=== PATIENT | male | born 1970 | race Caucasian/White ===

== ENCOUNTER 2020-06-04 10:17 | Outpatient (REF) | payer BC, SELFPAY ==
[2020-06-04 11:24] LABS: Alanine Aminotransferase 63 U/L (0-40); Anion Gap 11 (12-20); Blood Urea Nitrogen 13 mg/dL (9-16); Carbon Dioxide 30 mmol/L (22-29); Chloride 102 mmol/L (96-108); Cholesterol 158 mg/dL; Estimated Glomerular Filt Rate > 60; Glucose Fasting 120 mg/dL (60-99); HDL Cholesterol 62 mg/dL; LDL Cholesterol Calculated 73 mg/dl; Potassium 4.6 mmol/l (3.3-5.1); Sodium 138 mmol/L (135-145); Triglycerides 119 mg/dL
== END 2020-06-04 10:18 | disposition home or self-care (01) ==
LOC: HO.LAB 10:17
PROVIDERS: PCP Family Medicine; Visit Provider Family Medicine
DX: I10 Essential (primary) hypertension (principal); E78.00 Pure hypercholesterolemia, unspecified; Z79.899 Other long term (current) drug therapy; Z83.3 Family history of diabetes mellitus
CPT/HCPCS: 80051; 80061; 82550; 82565; 82947; 84460; 84520

== ENCOUNTER 2020-08-27 08:43 | Outpatient (REF) | payer BC, SELFPAY ==
[2020-08-27 09:39] LABS: Alanine Aminotransferase 36 U/L (0-40); Aspartate Amino Transferase 22 U/L (5-37); Glucose Fasting 106 mg/dL (60-99)
[2020-08-27 10:23] LABS: Estimated Average Glucose 111 mg/dL; Hemoglobin A1c % 5.5 %
== END 2020-08-27 08:44 | disposition home or self-care (01) ==
LOC: HO.LAB 08:43
PROVIDERS: PCP Family Medicine; Visit Provider Family Medicine
DX: R73.9 Hyperglycemia, unspecified (principal); R79.89 Other specified abnormal findings of blood chemistry
CPT/HCPCS: 36415; 82947; 83036; 84450; 84460

== ENCOUNTER 2021-05-27 10:10 | Outpatient (REF) | payer BC, SELFPAY ==
[2021-05-27 11:39] LABS: Alanine Aminotransferase 47 U/L (0-40); Anion Gap 11 (12-20); Blood Urea Nitrogen 13 mg/dL (9-16); Carbon Dioxide 31 mmol/L (22-29); Chloride 104 mmol/L (96-108); Estimated Glomerular Filt Rate > 60; Potassium 4.8 mmol/L (3.3-5.1); Sodium 141 mmol/L (135-145)
== END 2021-05-27 10:11 | disposition home or self-care (01) ==
LOC: HO.LAB 10:10
PROVIDERS: PCP Family Medicine; Visit Provider Family Medicine
DX: I10 Essential (primary) hypertension (principal); E78.00 Pure hypercholesterolemia, unspecified; Z79.899 Other long term (current) drug therapy
CPT/HCPCS: 36415; 80051; 82550; 82565; 84460; 84520

== ENCOUNTER 2021-08-29 10:10 | Outpatient (REF) | payer BC, SELFPAY ==
[2021-08-29 14:12] LABS: Appearance Urine CLEAR; Color Urine YELLOW; Glucose Urine UA NEG (NEG); Leukocyte Esterase Urine TRACE (NEG); Nitrite Urine NEG (NEG); UACC Culture Trigger YES; Urine Blood NEG (NEG); Urine Ketones NEG (NEG); Urine Protein NEG (NEG-TRACE)
[2021-08-29 15:03] LABS: Squamous Epithelial Cell Urine 1+ /LPF
[2021-08-29 15:04] LABS: RBC Urine 0 /HPF (0); WBC Urine 0-2 /HPF (0-4)
== END 2021-08-29 10:11 | disposition home or self-care (01) ==
LOC: HO.10HDL 10:10
PROVIDERS: Visit Provider Family Medicine
DX: R30.0 Dysuria (principal)
CPT/HCPCS: 81001; 87086

== ENCOUNTER 2021-11-24 14:46 | Outpatient (REF) | payer BC, SELFPAY ==
[2021-11-24 16:18] LABS: Alanine Aminotransferase 48 U/L (0-40); Anion Gap 12 (12-20); Aspartate Amino Transferase 27 U/L (5-37); Blood Urea Nitrogen 14 mg/dL (9-16); Carbon Dioxide 29 mmol/L (22-29); Chloride 103 mmol/L (96-108); Estimated Glomerular Filt Rate > 60; Potassium 3.9 mmol/L (3.3-5.1); Sodium 140 mmol/L (135-145)
== END 2021-11-24 14:47 | disposition home or self-care (01) ==
LOC: HO.LAB 14:46
PROVIDERS: PCP Family Medicine; Visit Provider Family Medicine
DX: E78.00 Pure hypercholesterolemia, unspecified (principal); I10 Essential (primary) hypertension; Z79.899 Other long term (current) drug therapy
CPT/HCPCS: 36415; 80051; 82550; 82565; 84450; 84460; 84520

== ENCOUNTER 2022-07-07 10:12 | Outpatient (REF) | payer BC, SELFPAY ==
[2022-07-07 10:20] LABS: MANUAL DIFF FLAG NO
[2022-07-07 11:05] LABS: Basophils Absolute Auto 0.1 X10*3/uL (0.0-0.2); Basophils Percent Auto 1.4 % (0-2); Eosinophils Absolute Auto 0.2 X10*3/uL (0.0-0.4); Eosinophils Percent Auto 3.1 % (0-4); Hematocrit 44.5 % (42.0-52.0); Imm Gran Abs Auto 0.04 X10*3/uL (0.00-0.03); Imm Gran Pct Auto 0.6 % (0.0-0.4); Lymphocytes Absolute Auto 1.9 X10*3/uL (1.2-4.9); Lymphocytes Percent Auto 26.8 % (20-40); Mean Corpuscular HGB Conc 33.7 g/dl (31.0-36.0); Mean Corpuscular Volume 85.9 fL (80.0-98.0); Mean Platelet Volume 9.1 fL (9.4-12.4); Monocytes Absolute Auto 0.5 X10*3/uL (0.1-1.2); Monocytes Percent Auto 7.4 % (2-11); Neutrophils Absolute Auto 4.4 x10*3/uL (2.0-8.3); Neutrophils Percent Auto 60.7 % (45-73); Platelet Count 228 X10*3/uL (160-400); Red Blood Count 5.18 X10*6/uL (4.60-5.80); Red Cell Distribution Width 13.3 % (11.0-16.0); White Blood Count 7.2 X10*3/uL (4.8-10.8)
[2022-07-07 11:33] LABS: Alanine Aminotransferase 73 U/L (0-40); Albumin Level 4.6 g/dL (3.5-5.0); Alkaline Phosphatase 63 U/L (39-117); Anion Gap 13 (12-20); Aspartate Amino Transferase 46 U/L (5-37); Bilirubin Total 0.6 mg/dL (0.0-1.0); Blood Urea Nitrogen 10 mg/dL (9-16); Calcium 9.5 mg/dL (8.4-10.2); Carbon Dioxide 29 mmol/L (22-29); Chloride 104 mmol/L (96-108); Estimated Glomerular Filt Rate > 60; Glucose Random 103 mg/dL (60-115); Potassium 4.5 mmol/L (3.3-5.1); Sodium 141 mmol/L (135-145)
== END 2022-07-07 10:13 | disposition home or self-care (01) ==
LOC: HO.LAB 10:12
PROVIDERS: PCP Family Medicine; Visit Provider Family Medicine
DX: I10 Essential (primary) hypertension (principal); E66.9 Obesity, unspecified; R00.0 Tachycardia, unspecified
CPT/HCPCS: 36415; 80053; 85025

== ENCOUNTER 2022-09-20 12:39 | Outpatient (REF) | payer BC, SELFPAY ==
--- NOTE | ~2022-09-20 | XR_ITS ---
EXAMINATION: XR BILATERAL KNEES CLINICAL INFORMATION: Reason for Exam M25.569 - Pain in unspecified knee COMPARISON: Knee radiographs 01/08/2017 TECHNIQUE: 2 views of the bilateral knees. 2 views of the left knee and 2 views of the right knee. 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 Moderate degenerative changes of the knee with loss of patellofemoral compartment joint space and tricompartmental osteophytes. No joint effusion. Soft tissues are unremarkable. LEFT KNEE: No acute fracture or dislocation. Redemonstration of a chronic posttraumatic deformity of the patella status post wire and screw fixation and again the lateral component of the fracture fragment does not appear to contain the dominant lateral fracture fragment. Advanced degenerative changes involving the patellofemoral compartment with there is complete loss of lateral patellofemoral compartment joint space. Small suprapatellar joint effusion. Soft tissues are unremarkable. 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 Moderate degenerative changes of the knee with loss of patellofemoral compartment joint space and tricompartmental osteophytes. LEFT KNEE: Redemonstration of a chronic posttraumatic deformity of the patella status post wire and screw fixation and again the lateral component of the fracture fragment does not appear to contain the dominant lateral fracture fragment. Advanced degenerative changes involving the patellofemoral compartment with there is complete loss of lateral patellofemoral compartment joint space.
--- NOTE | ~2022-09-20 | XR_ITS ---
EXAMINATION: XR BILATERAL KNEES CLINICAL INFORMATION: Reason for Exam M25.569 - Pain in unspecified knee COMPARISON: Knee radiographs 01/08/2017 TECHNIQUE: 2 views of the bilateral knees. 2 views of the left knee and 2 views of the right knee. 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 Moderate degenerative changes of the knee with loss of patellofemoral compartment joint space and tricompartmental osteophytes. No joint effusion. Soft tissues are unremarkable. LEFT KNEE: No acute fracture or dislocation. Redemonstration of a chronic posttraumatic deformity of the patella status post wire and screw fixation and again the lateral component of the fracture fragment does not appear to contain the dominant lateral fracture fragment. Advanced degenerative changes involving the patellofemoral compartment with there is complete loss of lateral patellofemoral compartment joint space. Small suprapatellar joint effusion. Soft tissues are unremarkable. 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 Moderate degenerative changes of the knee with loss of patellofemoral compartment joint space and tricompartmental osteophytes. LEFT KNEE: Redemonstration of a chronic posttraumatic deformity of the patella status post wire and screw fixation and again the lateral component of the fracture fragment does not appear to contain the dominant lateral fracture fragment. Advanced degenerative changes involving the patellofemoral compartment with there is complete loss of lateral patellofemoral compartment joint space.
--- NOTE | ~2022-09-20 | XR_ITS ---
EXAMINATION: XR BILATERAL KNEES CLINICAL INFORMATION: Reason for Exam M25.569 - Pain in unspecified knee COMPARISON: Knee radiographs 01/08/2017 TECHNIQUE: 2 views of the bilateral knees. 2 views of the left knee and 2 views of the right knee. 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 Moderate degenerative changes of the knee with loss of patellofemoral compartment joint space and tricompartmental osteophytes. No joint effusion. Soft tissues are unremarkable. LEFT KNEE: No acute fracture or dislocation. Redemonstration of a chronic posttraumatic deformity of the patella status post wire and screw fixation and again the lateral component of the fracture fragment does not appear to contain the dominant lateral fracture fragment. Advanced degenerative changes involving the patellofemoral compartment with there is complete loss of lateral patellofemoral compartment joint space. Small suprapatellar joint effusion. Soft tissues are unremarkable. 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 Moderate degenerative changes of the knee with loss of patellofemoral compartment joint space and tricompartmental osteophytes. LEFT KNEE: Redemonstration of a chronic posttraumatic deformity of the patella status post wire and screw fixation and again the lateral component of the fracture fragment does not appear to contain the dominant lateral fracture fragment. Advanced degenerative changes involving the patellofemoral compartment with there is complete loss of lateral patellofemoral compartment joint space.
== END 2022-09-20 12:40 | disposition home or self-care (01) ==
LOC: HO.HOSX 12:39
PROVIDERS: Visit Provider Physician Assistant
DX: M17.0 Bilateral primary osteoarthritis of knee (principal)
CPT/HCPCS: 20610; 73560; 73565; J1040

== ENCOUNTER → 2022-12-24 15:02 | Outpatient (BNVA) | payer BC, SELFPAY | PROVIDERS: PCP Family Medicine; Visit Provider Physician Assistant ==

== ENCOUNTER 2023-01-02 09:43 | Emergency (ER) | payer BC, SELFPAY ==
--- NOTE | ~2023-01-02 | XR_ITS ---
EXAMINATION: XR KNEE, RIGHT CLINICAL INFORMATION: Right knee pain and swelling. No known recent injury. COMPARISON: Standing AP knees and right knee radiographs 09/20/2022. TECHNIQUE: Four views of the right knee. FINDINGS: There is interval moderate to large suprapatellar effusion since prior imaging 09/20/2022. There is an old posttraumatic deformity involving the patella similar to prior imaging. No acute or healing fracture, dislocation, or destructive process. No periostitis. Again, there are tricompartment osteoarthritic changes with associated osteophytes femoral condyles and tibial plateau. XR/XR knee RT 3V IMPRESSION: - Moderate to large suprapatellar effusion new from prior imaging 09/20/2022. - Old posttraumatic deformity patella similar to prior imaging. No acute or healing fracture or dislocation. - Tricompartment osteoarthritis.
[2023-01-02 09:52] VITALS: BP 154/91; PULSE 73; RESP 18; TEMP 36.5; O2SAT 97; BMI 40.2
--- NOTE | 2023-01-02 09:57 | PC.NURSE ---
Patient with history of breaking bilateral knee caps presents with right knee pain. Patient unable to bear weight to the extremity, used crutches at home and a wheelchair in waiting room. Right knee noted to be more swollen than left knee. Patient is otherwise well appearing.
--- NOTE | 2023-01-02 10:21 | ED.LOWEXIN ---
HPI - Extremity Injury (Lower) General Chief Complaint: Extremity Injury, Lower Stated Complaint: R knee pain Time Seen by Provider: 01/02/23 09:48 Source: patient, RN notes reviewed and old records reviewed Limitations: no limitations History of Present Illness HPI Narrative: 52-year-old male with a PMHx of patellofemoral arthritis, prior bilateral patellar surgery presents to the ED c/o atraumatic right knee pain x 1 day with difficulty/inability to ambulate secondary to pain. 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 admits tried Aleve and icing knee without relief. He denies recent trauma to the area, weakness, fever MD complaint: other Onset (ago): day(s) Related Data Home Medications Medication Instructions Recorded Confirmed albuterol sulfate 90 mcg/actuation 2 puff inhalation Q4H PRN wheezing 09/20/22 aerosol inhaler metoprolol succinate 50 mg 50 mg PO DAILY 09/20/22 tablet,extended release 24 hr simvastatin 40 mg tablet 40 mg PO BEDTIME 09/20/22 Previous Rx's Medication Instructions Recorded ketorolac 10 mg tablet 10 mg PO TID PRN pain 5 days #15 01/02/23 tabs Allergies Allergy/AdvReac Type Severity Reaction Status Date / Time acetaminophen [Percocet] Allergy Unknown syncope Verified 12/24/22 15:23 oxycodone [Percocet] Allergy Unknown syncope Verified 12/24/22 15:23 Review of Systems Review of Systems: Constitutional: No Fever, No Chills ENT/Mouth: No Nasal Congestion, No Hoarseness, No sore throat, No Rhinorrhea, No Swallowing Difficulty Cardiovascular: No Chest Pain, No SOB Respiratory: No Cough, No Sputum, No Wheezing Gastrointestinal: No Nausea, No Vomiting Musculoskeletal: + Joint pain, No Myalgias, + Joint Swelling Skin: No Skin Lesions, No rash Neuro: No Weakness, No Numbness, + Paresthesias Yes all other systems are reviewed and are negative Constitutional: Constitutional: Reports as per [facility] Past Medical History Attestation statement: The following information was validated with the patient. 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 [employer] Physical Exam Vital Signs: Vital Signs: Last Vital Signs Temp 98.1 F 01/02/23 12:38 Pulse 82 01/02/23 12:38 Resp 18 01/02/23 12:38 BP 129/78 01/02/23 12:38 Pulse Ox 96 01/02/23 12:38 O2 Del Method Room Air 01/02/23 12:38 BMI result Body Mass Index 40.2 Const: General: cooperative, healthy appearing and no acute distress Orientation/consciousness: patient oriented x3 Limitations: no limitations HEENT: Head: Yes normal to inspection and Yes atraumatic Ears: hearing grossly normal bilaterally General nose exam: Normal external nose present Face and sinus: Yes normal facial exam Eyes: General: appearance normal, both eyes and all related structures EOM: EOMs intact bilaterally Neck: Neck: Yes normal visual inspection and Yes no meningeal signs Resp: Effort & Inspection: normal respiratory effort and no respiratory distress Cardio: Rate: regular rate Skin: Rashes: no rashes Wounds: no wounds Neuro: General: patient oriented x3, tone normal and no meningeal signs Gait exam (Neuro): Normal gait present Extrem: General: Yes no calf tenderness Right lower extremity: knee Details: tenderness Location: of the medial joint line and of the lateral joint line, swelling Location: of the patella, of the pre-patellar area and of the infrapatellar area and abnormal ROM Details: unable to extend lower leg actively and with range as follows (decreased); no lacerations, no ecchymosis, no crepitus and no unusual warmth; ROM limited Left lower extremity: normal to inspection and full ROM Course Course Course Narrative: XR knee RT 3V IMPRESSION: - Moderate to large suprapatellar effusion new from prior imaging 09/20/2022. - Old posttraumatic deformity patella similar to prior imaging. No acute or healing fracture or dislocation. - Tricompartment osteoarthritis. >BETITO wrap applied for comfort/compression and stability. Patient is supplied with crutches. Recommended close follow-up with PCP/Orthopedics, likely will need MRI Medications Administered Discontinued Medications Generic Name Dose Route Start Last Admin Trade Name Freq PRN Reason Stop Dose Admin Ketorolac Tromethamine 30 mg 01/02/23 10:55 01/02/23 11:10 Ketorolac Tromethamine 30 Mg/Ml Vial IM 01/02/23 10:56 30 mg ONCE ONE Administration Medical Decision Making Medical Decision Making MDM Narrative: 52-year-old male with a PMHx of patellofemoral arthritis, prior bilateral patellar surgery presents to the ED c/o atraumatic right knee pain x 1 day with difficulty/inability to ambulate secondary to pain. On exam VSS, Right knee with mild swelling, diffusely ttp use, no crepitus/deformity erythema or warmth. +decreased ROM. Concerning for tendon/ligamental injury vs. sprain, less likely DVT, septic joint/arthritis, gout. Plan: X-rays, IM Toradol Please refer to course for remaining clinical decision making, interpretation of labs/imaging results, and discussions with consultants and/or family members. Differential Diagnosis Differential Diagnoses: The differential diagnosis associated with the presentation includes As above Admission/Observation Consideration of admission/observation: Escalation of care including admission/observation considered Lab Data [facility] Lab Attestation statement: I reviewed the patient's lab results. Radiology Impression Discussion of test interpretation with radiology: I have reviewed the radiologist's reading. External Record Review External record reviewed: Inpatient record, Office record, Outpatient record, Prior outpatient labs, Prior outpatient radiology, Primary care record and Outside ED record Tests considered The following testing was considered but not selected: As above Discharge Plan Discharge Clinical Impression: Suprapatellar effusion of knee Patient Disposition: Home, Self-Care Instructions: Swollen Knee Joint (ED) Additional Instructions: Your x-ray shows a moderate to large suprapatellar effusion. Wear Betito wrap for compression/comfort. Bear weight as tolerated Ice and elevate Toradol as an anti-inflammatory/pain medication, take with food In addition you may take Tylenol Follow-up with your doctor and Orthopedics, you may need an MRI if symptoms persist If area being sick infected, swelling persists/worsens, pain is unbearable return to the ED Prescriptions: New ketorolac 10 mg tablet 10 mg PO TID PRN (Reason: pain) 5 Days Qty: 15 0RF No Action simvastatin 40 mg tablet 40 mg PO BEDTIME metoprolol succinate 50 mg tablet extended release 24 hr 50 mg PO DAILY albuterol sulfate 90 mcg/actuation HFA aerosol inhaler 2 puff inhalation Q4H PRN (Reason: wheezing) Referrals: [facility] – [place], [place] [facility] [Provider Group] Miguel Angel Guerra MD [Primary Care Provider] - Interventions: ED Discharge Assessment Last Done: 01/02/23 12:40 Discharge Date/Time: 01/02/23 12:41
[2023-01-02] MEDS: Ketorolac Tromethamine 30 MG/ML VIAL IM (11:10)
[2023-01-02 12:38] VITALS: BP 129/78; PULSE 82; RESP 18; TEMP 36.7; O2SAT 96
== END 2023-01-02 12:41 | disposition home or self-care (01) ==
PROVIDERS: Emergency Provider Emergency Medicine; PCP Family Medicine
DX: M25.561 Pain in right knee (principal); M25.461 Effusion, right knee; Z79.899 Other long term (current) drug therapy
CPT/HCPCS: 73562; 96372; 99284; J1885

== ENCOUNTER → 2023-01-10 09:51 | Outpatient (BNVA) | payer BC, SELFPAY | PROVIDERS: PCP Family Medicine; Visit Provider Physician Assistant | DX: M17.10 Unilateral primary osteoarthritis, unspecified knee (principal) | CPT/HCPCS: 20610; J1040 ==

== ENCOUNTER 2023-04-19 12:34 | Outpatient (AMB) | payer BC, SELFPAY ==
--- NOTE | 2023-04-19 12:39 | A.OFFVIS_ITS ---
Intake Intake Visit Reasons: OV-B/L OA knee, last injection 01/10/23 Intake Note: Norbert a 52 year old male who presents today for a follow up of bilateral knee OA, last injection 01/10/23. Patient reports last injection provided great relief. He also states last saturday he heard a pop in the back of his right knee. He is having trouble weight bearing and is currently using crutches. He is still interested in injections today. Allergies acetaminophen [Percocet] Allergy (Unknown, Verified 04/19/23 12:46) syncope oxycodone [Percocet] Allergy (Unknown, Verified 04/19/23 12:46) syncope Medication List - Last Reconciled 04/19/23 by Betzy Perez, ISABEL albuterol sulfate 90 mcg/actuation 2 puffs inhalation Q4H PRN ketorolac 10 mg PO TID PRN 5 days metoprolol succinate ER 50 mg PO DAILY simvastatin 40 mg PO BEDTIME HPI OV-B/L OA knee, last injection 01/10/23 HPI Details 52-year-old male who returns to the [facility] today for a follow-up of bilateral knee pain. He reports he heard a pop in the back of his right knee about 3 days ago. He states he has pain with weight bearing and is currently using crutches. He had his last injection on 01/10/23 which provided him good relief. He does not have a history of diabetes. 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 [employer] Review of Systems Const All systems reviewed & are unremarkable except as noted in HPI and below Physical Exam Const General: cooperative, healthy appearing, comfortable, no acute distress, well developed and alert Orientation/consciousness: patient oriented x3 HEENT Head: Yes normal to inspection, Yes normocephalic and Yes atraumatic Eyes General: appearance normal, both eyes and all related structures Resp Effort & Inspection: normal respiratory effort and able to speak in complete sentences Cardio Rate: regular rate Peripheral pulses: Peripheral pulses 2+ throughout GI Palpation (GI): Soft to palpation Skin Lesions: no lesions Rashes: no rashes Neuro General: patient oriented x3 Extrem Other: Bilat knee's have a bony prominence along the lateral side of the patella with significant crepitus on ROM. He has Full ROM on left knee, calf supple non tender, NVI. Right knee: Positive Chela's. He does have 15 degrees of extension lag. Office Procedures Joint Injection/Drain Joint Injection/Drain Primary Site: left knee Prep: site was prepped using aseptic technique, ethochloride spray was applied and injection warnings given Injected: 80 mg of, DepoMedrol, with 8 mL of, 1% plain lidocaine and in the joint Approach Used: anterolateral Procedure: The patient tolerated the procedure well and there was some relief with the local anesthesia Coding 08390 - Glenohumeral/Tronchanteric Bursa/Intraarticular Procedure code (CPT) selection complete Results Reviewed Results Reviewed: 04/19/23 12:52 Lidocaine HCl 2 % MPF [Xylocaine 2 % MPF] 5 ml .ROUTE .STK-MED ONE methylPREDNISolone acetate [DEPO-MedroL] 80 mg .ROUTE .STK-MED ONE Assessment & Plan Assessment & Plan (1) Patellofemoral arthritis: Code(s): M17.10 - Unilateral primary osteoarthritis, unspecified knee (2) Internal derangement of right knee: Code(s): M23.91 - Unspecified internal derangement of right knee (3) Locking of right knee: Code(s): M23.91 - Unspecified internal derangement of right knee Plan Left knee: We discussed options today which include steroid injection. They did consent to move forward with the left knee injection, which was tolerated well. I recommended rest, ice and elevation and OTC anti-inflammatories PRN for discomfort. If symptoms persist or worsens over the next 6-8 weeks, patient will contact the office, otherwise follow-up as needed. Right knee: A STAT MRI has been ordered for his right knee to further evaluate the integrity of his meniscus given his lack of ROM and inability to full weight bear on the RLE. Once the scan is complete, I will contact him with the results. If the scan is normal, we did discuss right knee steroid injection which he is content with. Orders: Orders MR knee RT wo con Today M17.10 - Unilateral primary osteoarthritis, unspecified knee, M17.11 - Unilateral primary osteoarthritis, right knee, M23.91 - Unspecified internal derangement of right knee Medications: New celecoxib (Celebrex) 200 mg PO BID 60 caps 3RF 30 days Patient Instructions: Scribed for Sandra Lopez PA-C, by Cody Santos, certified medical asst, on 04/19/2023 at 12:45 PM EST. I, Sandra oLpez PA-C, have personally reviewed and agree with the information entered by the scribe. Coding Level of Care Code Est Pt Level 3 (18305) Diagnoses Patellofemoral arthritis M17.10 Internal derangement of right knee M23.91 Locking of right knee M23.91 CPT Codes Coding - Joint 7: 93471 - Glenohumeral/Tronchanteric Bursa/Intraarticular ([id number])
== END 2023-04-19 13:18 | disposition home or self-care (01) ==
PROVIDERS: PCP Family Medicine; Visit Provider Physician Assistant
DX: M17.0 Bilateral primary osteoarthritis of knee (principal); M23.91 Unspecified internal derangement of right knee
CPT/HCPCS: 20610; 99213

== ENCOUNTER → 2023-04-19 12:34 | Outpatient (BNVA) | payer BC, SELFPAY | PROVIDERS: PCP Family Medicine; Visit Provider Physician Assistant | DX: M17.0 Bilateral primary osteoarthritis of knee (principal); M23.91 Unspecified internal derangement of right knee | CPT/HCPCS: 20610; J1040 ==

== ENCOUNTER 2023-04-19 16:49 | Outpatient (REF) | payer BC, SELFPAY ==
--- NOTE | ~2023-04-19 | MR_ITS ---
EXAMINATION: MR KNEE WITHOUT CONTRAST, RIGHT CLINICAL INFORMATION: Unilateral primary osteoarthritis, right knee. COMPARISON: 01/02/2023 TECHNIQUE: MRI of the knee without contrast was performed using routine sequences on a high-field scanner. FINDINGS: MENISCI: Medial Meniscus: A radial tear at the posterior horn extends through the majority of the meniscal cross-section, sparing a very thin band of peripheral undersurface fibers. This tear occurs 1.4 cm from the posterior root. Surrounding soft tissues are edematous. Partial extrusion of the meniscal body. Lateral Meniscus: Intact LIGAMENTS: Cruciate: Intact Collateral: Edema signal around the MCL is likely reactive to the underlying meniscal abnormality. Collateral ligaments are intact. A multilocular cyst along the lateral femoral epicondyle occurs at the origin of the popliteus tendon, likely a ganglion cyst. This measures up to 3 cm in length AP and situated deep to the fibular collateral ligament. EXTENSOR MECHANISM: Postoperative changes at the quadriceps and patellar tendons are characterized by tendon thickening and scar tissue formation. The patella is diminutive likely the result of prior partial resection. ARTICULAR CARTILAGE/BONE: Patellofemoral Compartment: The diminutive, fragmented patella has a persistent sagittal fracture line through the lateral facet without significant osseous bridging. There is cortical irregularity and full-thickness chondral fissuring at the fracture site. There is moderate nonuniform articular cartilage loss at the remaining articular surfaces of the patella with prominent marginal osteophytes. High-grade nonuniform articular cartilage loss is present at the trochlea with articular cortical remodeling, sclerosis, and marginal osteophytes. Medial Compartment: Moderate size marginal osteophytes. [id number] nonuniform chondral thinning at the medial femoral condyle and medial tibial plateau. Lateral Compartment: Hyhiqjei-is-mwdqk marginal osteophytes. Moderate nonuniform chondral thinning at the medial aspect of the lateral tibial plateau. More mild chondral thinning and surface irregularity at the lateral femoral condyle. JOINT FLUID AND BURSAE: [id number] effusion. Small Bliss's cyst. MR/MR knee RT wo con IMPRESSION: 1. High-grade radial tear at the posterior horn of the medial meniscus with partial extrusion of the meniscal body. 2. Hiemprho-dr-ozedno patellofemoral compartment osteoarthritis. Prior patellectomy with a residual sagittally oriented fracture through the lateral facet of the remaining bone. 3. Jzpb-[id number]-ddpijgcz medial and mild lateral compartment osteoarthritis. 4. Ijlsnaxh-ne-huxyn joint effusion and small Bliss's cyst.
== END 2023-04-19 16:50 | disposition home or self-care (01) ==
LOC: HO.MRI 16:49
PROVIDERS: PCP Family Medicine; Visit Provider Physician Assistant
DX: M17.11 Unilateral primary osteoarthritis, right knee (principal); M23.91 Unspecified internal derangement of right knee
CPT/HCPCS: 73721

== ENCOUNTER 2023-04-25 13:14 | Outpatient (AMB) | payer BC, SELFPAY ==
--- NOTE | 2023-04-25 13:31 | MHC.OFFVIS ---
Intake Intake Visit Reasons: OV- MRI Knee RT review Intake Note: Norbert is a 52 year old male who presents today for a Right knee MRI review. He was last seen on 04/19/23 with Sandra who gave injection in his left knee. Today if possible he would like an injection in his right knee. Allergies acetaminophen [Percocet] Allergy (Unknown, Verified 04/25/23 13:32) syncope oxycodone [Percocet] Allergy (Unknown, Verified 04/25/23 13:32) syncope Medication List - Last Reconciled 04/25/23 by Betzy Perez, ISABEL albuterol sulfate 90 mcg/actuation 2 puffs inhalation Q4H PRN celecoxib (Celebrex) 200 mg PO BID 30 days ketorolac 10 mg PO TID PRN 5 days metoprolol succinate ER 50 mg PO DAILY simvastatin 40 mg PO BEDTIME HPI OV- MRI Knee RT review HPI Details Norbert is a 52 year old man who presents for an MRI review of his right knee. He complains of pain in his knee with daily activity, worse with using stairs, prolonged walking, or squatting activities. His pain has been present for ~7 months now. He has left knee OA and had a knee injection on 04/19/23 by ELISHA Lopez. He did not receive a right knee injection at the time due to his knee being swollen. 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 [email or web address] Review of Systems Const All systems reviewed & are unremarkable except as noted in HPI and below Physical Exam Const General: no acute distress, alert and awake Orientation/consciousness: patient oriented x3 HEENT Head: Yes normocephalic and Yes atraumatic Eyes EOM: EOMs intact bilaterally Resp Effort & Inspection: normal respiratory effort and able to speak in complete sentences Cardio Jugular venous distension: no JVD Skin General skin exam: turgor normal Rashes: no rashes Neuro General: patient oriented x3 Extrem Other: Right Knee: Mild medial joint line ttp mild effusion neg steinmen's Psych Appearance: grossly normal Affect: normal affect Attitude: cooperative Office Procedures Joint Injection/Drain Joint Injection/Drain Details: Injected 1 mL of Decadron and 3 mL 1% lidocaine and 3 mL of 0.25% Marcaine. Site was prepped using aseptic technique. Patient tolerated the procedure well. Primary Site: right knee Approach Used: anterolateral Coding 29466 - Large joint Procedure code (CPT) selection complete Results Reviewed Results Reviewed: 04/25/23 13:43 BUPivacaine MPF 0.25 % [Sensorcaine-MPF 0.25% 10 ML] 10 ml .ROUTE .STK-MED ONE Lidocaine HCl 2 % MPF [Xylocaine 2 % MPF] 5 ml .ROUTE .STK-MED ONE dexAMETHasone sod phosphate [Decadron] 4 mg .ROUTE .STK-MED ONE I personally reviewed relevant radiographs & MR images - Moderate to large suprapatellar effusion new from prior imaging 09/20/2022. - Old posttraumatic deformity patella similar to prior imaging. No acute or healing fracture or dislocation. - Tricompartment osteoarthritis. 1. High-grade radial tear at the posterior horn of the medial meniscus with partial extrusion of the meniscal body. 2. Hadyohju-wu-qkbeau patellofemoral compartment osteoarthritis. Prior patellectomy with a residual sagittally oriented fracture through the lateral facet of the remaining bone. 3. Jokm-gx-gozxinqh medial and mild lateral compartment osteoarthritis. 4. Unjcoday-ax-fvhpf joint effusion and small Bliss's cyst. Assessment & Plan Assessment & Plan (1) Patellofemoral arthritis of right knee: Code(s): M17.11 - Unilateral primary osteoarthritis, right knee Plan: This is a 52 year old man with a right knee MMT in a setting of moderate PF OA. He has occasional pain with daily activity, worse prolonged ambulation, or squatting activities. He has a hx of relief from steroid injections. He has been improving in the last several months. This is a degenerative tear in the setting of OA and surgery is unlikely to be helpful. I discussed his diagnosis and treatment options. Most of his symptoms seem to be attributed to his OA as opposed to his MMT, and I do not recommend surgical intervention at this time. I injected his right knee today, which he tolerated well and recommend he remain active and work on weight management. He can follow up prn. (2) Tear of medial meniscus of right knee: Code(s): S83.241A - Other tear of medial meniscus, current injury, right knee, initial encounter Plan Scribed for Bharathi Benz MD by Michoacano Lomas, medical affairs specialist, on 04/25/23 at 1:45 PM, EST. Coding Level of Care Code Est Pt Level 4 (18539) Diagnoses Patellofemoral arthritis of right knee M17.11 Tear of medial meniscus of right knee S83.241A CPT Codes Coding - 71328 Large joint: 13596 - Large joint ([id number])
== END 2023-04-25 14:00 | disposition home or self-care (01) ==
PROVIDERS: PCP Family Medicine; Visit Provider Orthopaedic Surgery
DX: M17.11 Unilateral primary osteoarthritis, right knee (principal); S83.241A Other tear of medial meniscus, current injury, right knee, initial encounter
CPT/HCPCS: 20610; 99214

== ENCOUNTER → 2023-04-25 13:14 | Outpatient (BNVA) | payer BC, SELFPAY | PROVIDERS: PCP Family Medicine; Visit Provider Orthopaedic Surgery | DX: M17.11 Unilateral primary osteoarthritis, right knee (principal); S83.241A Other tear of medial meniscus, current injury, right knee, initial encounter | CPT/HCPCS: 20610; J1100 ==

== ENCOUNTER 2023-06-22 08:46 | Outpatient (REF) | payer BC, SELFPAY ==
[2023-06-22 09:46] LABS: Alanine Aminotransferase 58 U/L (0-40); Anion Gap 10 (12-20); Aspartate Amino Transferase 25 U/L (5-37); Blood Urea Nitrogen 7 mg/dL (9-16); Carbon Dioxide 27 mmol/L (22-29); Chloride 108 mmol/L (96-108); Estimated Glomerular Filt Rate > 60; Potassium 4.1 mmol/L (3.3-5.1); Sodium 141 mmol/L (135-145)
[2023-06-22 10:07] LABS: Prostate Specific Antigen Scr 0.41 ng/mL (<0.05-4.0)
== END 2023-06-22 08:47 | disposition home or self-care (01) ==
LOC: HO.LAB 08:46
PROVIDERS: PCP Family Medicine; Visit Provider Family Medicine
DX: Z12.5 Encounter for screening for malignant neoplasm of prostate (principal); I10 Essential (primary) hypertension; R35.1 Nocturia; E78.00 Pure hypercholesterolemia, unspecified; Z79.899 Other long term (current) drug therapy
CPT/HCPCS: 36415; 80051; 82550; 82565; 84153; 84450; 84460; 84520

== ENCOUNTER 2023-07-19 06:28 | Day surgery (SDC) | payer BC, SELFPAY ==
[2023-07-17 10:05] VITALS: BMI 43.0
--- NOTE | 2023-07-18 11:06 | P.CONAN_ITS ---
Documented by User: Luanne Ramirez NP 07/18/23 11:10 HPI - Anesthesia Eval Consult details Narrative: 52yo M for Colonoscopy PMFSH Active Problems Active Problems: All Active Problems (Updated 07/17/23 @ 10:04 by Yojana Jovel RN) Patellofemoral arthritis of right knee (Acute) Tear of medial meniscus of right knee (Acute) Locking of right knee (Acute) Internal derangement of right knee (Acute) Patellofemoral arthritis (Acute) Past Medical History Medical History (Updated 07/17/23 @ 10:04 by Yojana Jovel RN) Asthma Obstructive sleep apnea on CPAP Asthma High cholesterol Surgical History Surgical History (Updated 07/17/23 @ 10:06 by Yojana Jovel RN) Hx of knee surgery Social History Social History Alcohol intake: current Alcohol intake frequency: holidays/special occasions only Patient Tobacco Use Status: Never used Tobacco Are you DNR?: No Advance Directives: No Advance Directives Information Provided: Yes Nutrition Risks: No Nutritional Risk Current occupational status: employed 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[email or web address] Allergies Allergy/AdvReac Type Severity Reaction Status Date / Time oxycodone [Percocet] Allergy Unknown syncope Verified 04/25/23 13:32 Home Medications Medication Instructions Recorded Confirmed Last Taken Type albuterol sulfate 90 mcg/actuation 2 puff inhalation Q4H PRN wheezing 09/20/22 07/19/23 01/08/23 History aerosol inhaler metoprolol succinate 50 mg 50 mg PO DAILY 09/20/22 07/19/23 07/18/23 21:30 History tablet,extended release 24 hr simvastatin 40 mg tablet 40 mg PO BEDTIME 09/20/22 07/19/23 07/18/23 21:30 History Exam Height,Weight and Vital Signs: Height 5 ft 10 in Weight 136.078 kg Pertinent Lab Results Pertinent Lab Results: Laboratory Tests 07/07/22 06/22/23 10:17 09:00 WBC 7.2 Hgb 15.0 Hct 44.5 Plt Count 228 Sodium 141 Potassium 4.1 Chloride 108 Carbon Dioxide 27 BUN 7 L Creatinine 0.86 Assessment and Plan Assessment Anesthesia Assessment: Chart Reviewed Documented by User: Raffi Vogel MD 07/19/23 07:28 [facility] Past Medical History Medical History (Updated 07/17/23 @ 10:04 by Yojana Jovel RN) Asthma Obstructive sleep apnea on CPAP Asthma High cholesterol Family History Family history of problems with anesthesia: No Surgical History Surgical History (Updated 07/17/23 @ 10:06 by Yojana Jovel RN) Hx of knee surgery History of Problems with Anesthesia: No Social History Social History Alcohol intake: current Alcohol intake frequency: holidays/special occasions only Patient Tobacco Use Status: Never used Tobacco Are you DNR?: No Advance Directives: No Advance Directives Information Provided: Yes Nutrition Risks: No Nutritional Risk Current occupational status: employed 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[email or web address] Allergies Allergy/AdvReac Type Severity Reaction Status Date / Time oxycodone [Percocet] Allergy Unknown syncope Verified 04/25/23 13:32 Home Medications Medication Instructions Recorded Confirmed Last Taken Type albuterol sulfate 90 mcg/actuation 2 puff inhalation Q4H PRN wheezing 09/20/22 07/19/23 01/08/23 History aerosol inhaler metoprolol succinate 50 mg 50 mg PO DAILY 09/20/22 07/19/23 07/18/23 21:30 History tablet,extended release 24 hr simvastatin 40 mg tablet 40 mg PO BEDTIME 09/20/22 07/19/23 07/18/23 21:30 History Exam Airway Mallampati Class: II TM Dist: <=3cm Neck ROM: Full Loose/Missing/Broken Teeth: No Heart: ok Lungs: ok Assessment and Plan Assessment Anesthesia Assessment: Anesthesia Plan Discussed Final Anesthetic Review Family History of Problems with Anesthesia: No History of Problems with Anesthesia: No NPO: Yes ASA Class: III Final Preanesthetic Review: No Changes in Pt Med Stat, Meds/Allgs Chart Reviewed, Consent Obtained/Reviewed and Anes Risks/Benef Reviewed Patient Risk: Intermediate Procedure Risk: Low Anesthetic Plan Anesthetic Plan: MAC: and Agree w/ Assess. and Plan Disposition: Standard PACU
[2023-07-19 06:31] VITALS: BMI 42.5
[2023-07-19 06:45] VITALS: BP 126/85; PULSE 100; RESP 20; TEMP 36.6; O2SAT 96
[2023-07-19] MEDS: Lactated Ringers 1,000 ML 100 ML IVCONT (06:57)
[2023-07-19 08:30] VITALS: BP 133/76; PULSE 92; RESP 16; TEMP 36.4; O2SAT 97
--- NOTE | 2023-07-19 08:36 | PM.OP ---
Brief Operative Note Date of Service: 07/19/23 Pre-op diagnosis: Screening Post-op diagnosis: other (Polyps) Procedure: Colonoscopy to the cecum with hot snare polypectomy x 2, and bx/removal of cecal polyp Surgeon: Bam Marroquin MD Anesthesia: MAC Was an Natural Sciences Manager used for this Procedure?: No Estimated blood loss (mL): 2.0 Pathology: other (A. Polyp at 50cm B. Proximal ascending colon polyp C. Cecal polyp) Condition: stable Disposition: PACU
[2023-07-19 08:45] VITALS: BP 117/45; PULSE 81; RESP 16; TEMP 36.4; O2SAT 96
--- NOTE | 2023-07-19 09:37 | OP_ITS ---
DATE OF SERVICE: 07/19/2023 SURGEON: Bam Marroquin MD INDICATIONS: The patient presents for evaluation of colorectal cancer screening. Full consent has been obtained from him for this, including risks of bleeding and perforation. PREOPERATIVE DIAGNOSIS: Colorectal cancer screening. POSTOPERATIVE DIAGNOSIS: Colorectal cancer screening, colon polyps, diverticulosis, and internal hemorrhoids. PROCEDURE PERFORMED: Colonoscopy to the cecum with hot snare polypectomy x2, and biopsy and removal of polyp. ESTIMATED BLOOD LOSS: COMPLICATIONS: ANESTHESIA: Monitored anesthesia care. ASSISTANTS: SPECIMENS: DESCRIPTION OF PROCEDURE: The patient was placed in the left lateral decubitus position. The digital rectal exam revealed no abnormalities. The Olympus video pediatric colonoscope was entered into the rectum and advanced easily to the cecum. Once in the cecum, I did identify cecal pouch with appendiceal orifice and a normal-appearing ileocecal valve. The entire cecum was well visualized and appeared normal other than an approximately 4 mm polyp adjacent to the appendiceal orifice, which was biopsied and removed completely with a cold biopsy forceps. The scope was then slowly withdrawn assessing all mucosal surfaces carefully. Preparation was excellent. The ileocecal valve appeared normal. In the proximal ascending colon was an approximately 6 mm grossly adenomatous polyp, which was removed by hot snare polypectomy and recovered by suction. The polypectomy site appeared clean, without any sign of residual polyp nor bleeding. At 50 cm was an approximately 8 to 10 mm polyp on a short stalk which was removed by hot snare polypectomy and recovered by suction. The polypectomy site appeared clean, without any sign of residual polyp nor bleeding. I did not visualize any other polyps, colitis, nor angiodysplasia. There was a mild amount of sigmoid diverticulosis. In the rectum, scope was retroflexed visualizing internal hemorrhoids, but no other pathology. The rectal mucosa appeared normal. The scope was straightened and withdrawn from the patient. He tolerated the procedure well and was returned to the recovery area in stable condition. IMPRESSION: 1. Colon polyps. 2. Diverticulosis. 3. Internal hemorrhoids. PLAN: The results of the pathology will be checked. Assuming these are tubular adenomas, I would recommend a followup colonoscopy in 5 years. He was advised not to use any aspirin and NSAIDs for 1 week. I did review with him that I will be in touch with him to further evaluate the elevated LFTs to be sure he does not need any further evaluation such as imaging studies or a liver workup with laboratories including iron studies, viral serologies, and autoimmune markers. MD GEORGES Paredes/ANANDA / [phone]
== END 2023-07-19 09:05 | disposition home or self-care (01) ==
PROVIDERS: PCP Family Medicine; Visit Provider Internal Medicine
PROC: 0DJD8ZZ Inspection of Lower Intestinal Tract, Via Natural or Artificial Opening Endoscopic (ICD-10-PCS; CPT 45378; principal; 2023-07-19 07:30)
DX: Z12.11 Encounter for screening for malignant neoplasm of colon (principal); D12.0 Benign neoplasm of cecum; D12.2 Benign neoplasm of ascending colon; D12.5 Benign neoplasm of sigmoid colon; K57.30 Diverticulosis of large intestine without perforation or abscess without bleeding; K64.8 Other hemorrhoids; J45.909 Unspecified asthma, uncomplicated; E78.5 Hyperlipidemia, unspecified; G47.33 Obstructive sleep apnea (adult) (pediatric); Z99.89 Dependence on other enabling machines and devices; Z79.02 Long term (current) use of antithrombotics/antiplatelets; Z79.899 Other long term (current) drug therapy
CPT/HCPCS: 45385; 45380; 88305; J2704

== ENCOUNTER 2023-07-26 10:07 | Outpatient (AMB) | payer BC, SELFPAY ==
--- NOTE | 2023-07-26 10:09 | MHC.OFFVIS ---
Intake Vital Signs 07/26/23 10:10 Height 5 ft 10 in Intake Visit Reasons: ov- right knee pain last injection 04/25/23 Intake Note: Norbert is a 52 year old male who presents today for a follow up of his right knee, last injection done 04/25/2023 . Patient reports that his last injection was helpful and would like to repeat today. Allergies oxycodone [Percocet] Allergy (Unknown, Verified 07/26/23 10:13) syncope HPI ov- right knee pain last injection 04/25/23 HPI Details Norbert is a 52 year old man who returns to discuss his right knee OA. He complains of pain in his knee with daily activity, worse with using stairs, prolonged walking, or squatting activities. He was last seen, and injected, on 04/25/23, with good relief. His left knee has been good. He describes pain mostly with standing from a seated position and stairs. 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 [employer] Review of Systems Const All systems reviewed & are unremarkable except as noted in HPI and below Physical Exam Const General: no acute distress, alert and awake Orientation/consciousness: patient oriented x3 HEENT Head: Yes normocephalic and Yes atraumatic Eyes EOM: EOMs intact bilaterally Resp Effort & Inspection: normal respiratory effort and able to speak in complete sentences Cardio Jugular venous distension: no JVD Skin General skin exam: turgor normal Rashes: no rashes Neuro General: patient oriented x3 Extrem Other: Anterior surgical incision bilateral knees ( s/p patellar ORIF). Retropatellar ttp Prominent lateral patellar facet on the right. Psych Appearance: grossly normal Affect: normal affect Attitude: cooperative Office Procedures Joint Injection/Drain Joint Injection/Drain Details: Injected 1 mL of Decadron and 3 mL 1% lidocaine and 3 mL of 0.25% Marcaine. Site was prepped using aseptic technique. Patient tolerated the procedure well. Primary Site: right knee Approach Used: anterolateral Coding 10635 - Large joint Procedure code (CPT) selection complete Results Reviewed Results Reviewed: I personally reviewed relevant radiographs. post traumatic PF OA, severe on right. Assessment & Plan Assessment & Plan (1) Patellofemoral arthritis of right knee: Code(s): M17.11 - Unilateral primary osteoarthritis, right knee Plan: Injected right knee May need TKA but doing ok for now. This is somewhat surprising given his radiographs. f/u as needed Plan Scribed for Bharathi Benz MD by Michoacano Lomas, medical equipment repair technician, on 07/26/23 at 10:15 AM, EST. Coding Level of Care Code Est Pt Level 3 (16328) Diagnoses Patellofemoral arthritis of right knee M17.11 CPT Codes Coding - Large joint: 23905 - Large joint ([id number])
== END 2023-07-26 11:10 | disposition home or self-care (01) ==
PROVIDERS: PCP Family Medicine; Visit Provider Orthopaedic Surgery
DX: M17.11 Unilateral primary osteoarthritis, right knee (principal)
CPT/HCPCS: 20610; 99213

== ENCOUNTER → 2023-07-26 10:07 | Outpatient (BNVA) | payer BC, SELFPAY | PROVIDERS: PCP Family Medicine; Visit Provider Orthopaedic Surgery | DX: M17.11 Unilateral primary osteoarthritis, right knee (principal) | CPT/HCPCS: 20610; J0665; J1100 ==

== ENCOUNTER 2023-12-13 09:49 | Outpatient (REF) | payer BC, SELFPAY ==
--- NOTE | ~2023-12-13 | US_ITS ---
EXAMINATION: US COMPLETE ABDOMEN WITH LIVER ELASTOGRAPHY CLINICAL INFORMATION: Fatty liver. COMPARISON: None available. TECHNIQUE: Real-time imaging of the abdominal viscera. Noninvasive ultrasound liver fibrosis assessment is performed using To ElastPQ point quantification shear wave elastography (2D-SWE) with a C5-2 MHz transducer. Multiple elastography samples are obtained. FINDINGS: PANCREAS: The pancreas is obscured by bowel gas artifact and cannot be evaluated. ABDOMINAL AORTA: Only the proximal aorta could be seen and appeared unremarkable. The mid and distal aorta were obscured by bowel gas. INFERIOR VENA CAVA: Obscured by bowel gas. LIVER: The liver is enlarged measuring 19.8 cm in length and demonstrates increased echogenicity consistent with hepatic steatosis. No focal lesion or intrahepatic biliary duct dilatation. The right lobe measures 19.8 cm in length. The left lobe measures 13.2 cm in length. Portal flow is hepatopedal. Shear wave liver elastography median stiffness is 1.58 m/s (reference: normal median stiffness is 1.3 m/s or less). IQR/median stiffness to assess sampling precision is 0.08 (reference: good quality data set is IQR/median stiffness of 0.15 or less). GALLBLADDER: . The gallbladder is physiologically distended without evidence of stones, sludge, wall thickening or pericholecystic fluid. A 4 mm gallbladder polyp is present. COMMON BILE DUCT: Normal in caliber measuring 0.6 cm in diameter. RIGHT KIDNEY: Normal. No hydronephrosis. No renal calculi or focal parenchymal lesions. The kidney measures 13.1 cm in maximum dimension. LEFT KIDNEY: Normal. No hydronephrosis. No renal calculi or focal parenchymal lesions. The kidney measures 13.0 cm in maximum dimension. SPLEEN: Normal. The spleen is mildly enlarged measuring 12.5 cm in maximum dimension. FREE FLUID: None. US/US abdomen comp w elastography IMPRESSION: 1. Enlarged fatty liver and mild splenomegaly. 2. Liver Elastography: In the absence of other known clinical signs, measurements rule out compensated advanced chronic liver disease. If there are known clinical signs, further testing may be needed for confirmation. REFERENCE: Society of Radiologists in Ultrasound Liver Stiffness Thresholds (2020): LIVER STIFFNESS THRESHOLDS: *Liver Stiffness equal or less than 1.3 m/s: High probability of being normal. *Liver Stiffness less than 1.7 m/s: In the absence of other known clinical signs, rules out compensated advanced chronic liver disease. *Liver Stiffness 1.7-2.1 m/s: Suggestive of compensated advanced chronic liver disease but need further test for confirmation. *Liver Stiffness over 2.1 m/s: Rules in compensated advanced chronic liver disease. *Liver Stiffness over 2.4 m/s: Suggestive of clinically significant portal hypertension. QUALITY OF DATA SET: *IQR/Median value equal or less than 0.15 implies a quality data set. *IQR/Median value over 0.15 implies a poor quality data set. SIGNIFICANT CHANGE FROM PRIOR EXAM: Significant change if liver stiffness measurement is 10% or greater from prior exam. OTHER CONSIDERATIONS: The stage of liver fibrosis may be overestimated in the setting of acute hepatitis, liver inflammation, elevated liver function tests, hepatic vascular congestion, obstructive cholestasis, non-fasting state, and infiltrative diseases such as amyloidosis and lymphoma. In some patients with NAFLD, the liver stiffness thresholds for compensated advanced chronic liver disease may be lower. In causes other than viral hepatitis and NAFLD, liver stiffness thresholds are not well established.
== END 2023-12-13 09:50 | disposition home or self-care (01) ==
LOC: HO.US 09:49
PROVIDERS: PCP Family Medicine; Visit Provider Internal Medicine
DX: K76.0 Fatty (change of) liver, not elsewhere classified (principal); R94.5 Abnormal results of liver function studies
CPT/HCPCS: 76700; 76981

== ENCOUNTER 2024-01-25 09:54 | Outpatient (REF) | payer BC, SELFPAY ==
[2024-01-25 10:19] LABS: MANUAL DIFF FLAG NO
[2024-01-25 10:49] LABS: Basophils Absolute Auto 0.1 X10*3/uL (0.0-0.2); Basophils Percent Auto 1.1 % (0-2); Eosinophils Absolute Auto 0.2 X10*3/uL (0.0-0.4); Eosinophils Percent Auto 3.1 % (0-4); Hemoglobin 14.6 g/dl (14.0-18.0); Imm Gran Abs Auto 0.03 X10*3/uL (0.00-0.03); Imm Gran Pct Auto 0.4 % (0.0-0.4); Lymphocytes Absolute Auto 1.8 X10*3/uL (1.2-4.9); Lymphocytes Percent Auto 23.7 % (20-40); Mean Corpuscular Hemoglobin 28.3 pg (27.0-33.0); Mean Corpuscular Volume 83.3 fL (80.0-98.0); Monocytes Absolute Auto 0.6 X10*3/uL (0.1-1.2); Monocytes Percent Auto 8.3 % (2-11); Neutrophils Absolute Auto 4.8 x10*3/uL (2.0-8.3); Neutrophils Percent Auto 63.4 % (45-73); Platelet Count 199 X10*3/uL (160-400); Red Blood Count 5.16 X10*6/uL (4.60-5.80); Red Cell Distribution Width 13.5 % (11.0-16.0); White Blood Count 7.5 X10*3/uL (4.8-10.8)
[2024-01-25 10:56] LABS: INTERNATIONAL NORM RATIO 0.9 (0.9-1.1); Prothrombin Time 11.3 SEC (11.1-13.3)
[2024-01-25 10:58] LABS: Estimated Average Glucose 131 mg/dL; Hemoglobin A1c % 6.2 % (<6.0)
[2024-01-25 11:17] LABS: Anion Gap 11 (12-20); Blood Urea Nitrogen 12 mg/dL (9-16); Carbon Dioxide 28 mmol/L (22-29); Chloride 105 mmol/L (96-108); Glucose Fasting 113 mg/dL (60-99); Potassium 4.4 mmol/L (3.3-5.1); Sodium 140 mmol/L (135-145)
[2024-01-25 11:30] LABS: Alanine Aminotransferase 64 U/L (0-40); Albumin Level 4.5 g/dL (3.5-5.0); Alkaline Phosphatase 62 U/L (39-117); Aspartate Amino Transferase 50 U/L (5-37); Bilirubin Direct 0.2 mg/dL (0.0-0.5); Bilirubin Total 0.6 mg/dL (0.0-1.0); Iron 79 mcg/dL (45-160); Percent Iron Saturation 28 % (15-50); Total Iron Binding Capacity 279 mcg/dL (228-428); Total Protein 7.3 g/dL (6.5-8.0); Unsaturated Iron Binding 200 ug/dL
[2024-01-25 11:34] LABS: Ferritin 221 ng/mL (20-250)
[2024-01-27 08:02] LABS: HBS Num1 0.01 mIU/mL (0-7.99); HBc Num1 0.13 S/CO (0.00-0.79); HBsAGNum1 0.29 S/CO (0.00-0.99); Hepatitis B Core Antibody Nonreactive (Nonreactive); Hepatitis B Surface Antigen Negative (Negative); ~HepC Num1 0.07 S/CO (0.00-0.79); ~Hepatitis B Surface Antibody NONREACTIVE (Nonreactive); ~Hepatitis C Antibody Nonreactive (Nonreactive)
[2024-01-27 09:28] LABS: Estimated Glomerular Filt Rate > 60
[2024-01-27 15:28] LABS: Mitochondrial Antibodies NEGATIVE (NEGATIVE)
[2024-01-28 14:24] LABS: Alpha 1 Anti-trypsin 92 mg/dL (83-199)
[2024-01-30 23:47] LABS: Smooth Muscle Antibody <20 U (<20)
[2024-02-03 11:33] LABS: Anti Nuclear Antibody Screen NEGATIVE (NEGATIVE)
[2024-02-05 17:53] LABS: FIB-ALT 54 U/L (9-46); FIB-Alpha-2-Macroglobulin 210 mg/dL (106-279); FIB-Apolipoprotein A1 198 mg/dL (94-176); FIB-GGT 42 U/L (3-95); FIB-Haptoglobin 193 mg/dL (43-212); FIB-Total Bilirubin 0.5 mg/dL (0.2-1.2); Liver Fibrosis Score 0.14; Liver Fibrosis Stage F0; Nec Inflam Act Grade A0-A1; Nec Inflam Act Score 0.27
== END 2024-01-25 09:55 | disposition home or self-care (01) ==
LOC: HO.LAB 09:54
PROVIDERS: Absent Provider Family Medicine; PCP Family Medicine; Visit Provider Internal Medicine
DX: I10 Essential (primary) hypertension (principal); G62.9 Polyneuropathy, unspecified
CPT/HCPCS: 36415; 80051; 80076; 81596; 82103; 82565; 82728; 82947; 83036; 83540; 84520; 85025; 85610; 86015; 86038; 86381; 86704; 86706; 86803; 87340

== ENCOUNTER 2024-04-24 10:53 | Outpatient (AMB) | payer BC, SELFPAY ==
--- NOTE | 2024-04-24 10:56 | MHC.OFFVIS ---
Vital Signs 04/24/24 10:56 Height 5 ft 10 in Intake Visit Reasons: ov- right knee pain last injection 07/26/23 Intake Note: Norbert is a 53 year old male who presents today for a follow up of his patellofemoral arthritis of the right knee. Last right knee cortisone injection was on 07/26/2023.Patient reports that this injection was helpful and he would like to repeat injections. His pain is primarily felt when standing from a seated position. Allergies oxycodone [Percocet] Allergy (Unknown, Verified 07/26/23 10:13) syncope HPI HPI ov- right knee pain last injection 07/26/23: Details: Norbert is a 53 year old male who presents today for a follow up of his patellofemoral arthritis of the right knee. Last right knee cortisone injection was on 07/26/2023. Patient reports that this injection was helpful and he would like to repeat injections. His pain is primarily felt when standing from a seated position. 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 Retropatellar ttp bilaterally Prominent lateral patellar facet on the right. Psych Appearance: grossly normal Affect: normal affect Attitude: cooperative Office Procedures Joint Injection/Aspiration Joint Injection/Aspiration Details: Injected 1 mL of Decadron and 3 mL 1% lidocaine and 3 mL of 0.25% Marcaine. Site was prepped using aseptic technique. Patient tolerated the procedure well. Primary Site: right knee Approach Used: anterolateral Coding - Large joint Procedure code (CPT) selection complete Assessment & Plan Assessment & Plan (1) Patellofemoral arthritis of right knee: Code(s): M17.11 - Unilateral primary osteoarthritis, right knee Category: Medical Plan: This is a 53-year-old gentleman with patellofemoral osteoarthritis right knee. I injected his right knee today. He can return for injections in 3-4 months if she would like. He should remain active and strong if possible. This was discussed. He expressed understanding. Coding Level of Care Code Est Pt Level 3 (24726) Diagnoses Patellofemoral arthritis of right knee M17.11 CPT Codes Coding - Large joint: 41098 - Large joint ([id number])
== END 2024-04-24 11:16 | disposition home or self-care (01) ==
PROVIDERS: PCP Family Medicine; Visit Provider Orthopaedic Surgery
DX: M17.11 Unilateral primary osteoarthritis, right knee (principal)
CPT/HCPCS: 20610; 99213

== ENCOUNTER → 2024-04-24 10:53 | Outpatient (BNVA) | payer BC, SELFPAY | PROVIDERS: PCP Family Medicine; Visit Provider Orthopaedic Surgery | DX: M17.11 Unilateral primary osteoarthritis, right knee (principal) | CPT/HCPCS: 20610; J0665; J1100; J2003 ==

== ENCOUNTER 2024-08-28 13:16 | Outpatient (REF) | END 2024-08-28 13:17 | disposition home or self-care (01) | LOC: HO.XRAY 13:16 | DX: R05.9 Cough, unspecified (principal); R06.2 Wheezing; R06.02 Shortness of breath ==

== ENCOUNTER → 2024-08-28 13:22 | Outpatient (BNV) | payer BC, SELFPAY | PROVIDERS: PCP Family Medicine; Visit Provider Radiology Diagnostic Radiology | DX: R05.9 Cough, unspecified (principal); R06.2 Wheezing | CPT/HCPCS: 71046 ==

== ENCOUNTER 2024-09-12 09:33 | Outpatient (REF) | payer BC, SELFPAY ==
--- OUTSIDE RECORDS SUMMARY | 2024-09-12 09:36 | XMS_ITS ---
Author Organization [facility] Address [address] [place] [address] Care Team Providers Care Regulatory Associate Name Role Phone Miguel Angel Guerar MD Primary Care Provider Bam Gaines Unavailable [phone] ALLERGIES Allergen (clinical drug ingredient) Drug/Non Drug Allergy documented on EMR Reaction Allergy Type Onset Date Status acetaminophen / oxycodone Percocet Unknown Drug Allergy Active REASON FOR VISIT Patient presents today for an office f/u visit for elevated LFT's MEDICATIONS Medication SIG (Take, Route, Frequency, Duration) Notes Start Date End Date Status Metoprolol Succinate ER 50 MG Oral for 90 Active Simvastatin 40 MG Oral for 90 Active SOCIAL HISTORY Tobacco Use: Social History Observation Description Date Details (start date - stop date) Never Smoker NA - NA Sex Assigned At : Social History Observation Description Sex Assigned At Unknown Tobacco Use/Smoking Question Answer Notes Patient is a nonsmoker Alcohol Screen Question Answer Notes Did you have a drink contain ing alcohol in the past year? Yes How often did you have a dri nk containing alcohol in the past year? Monthly or less (1 point) How many drinks did you have on a typical day when you were drinking in the past year? 1 or 2 drinks (0 point) How often did you have 6 or more drinks on one occasion in the past year? Never (0 point) Points 1 Interpretation Negative PROBLEMS Problem Type ICD Code Onset Dates Problem Status W/U Status Risk SNOMED Code Notes Problem Fatty liver (K76.0) Active confirmed Fatty liver (904808275) Problem Elevated liver function tests (R94.5) Active confirmed Elevated liver enzymes level (897055426) Problem Personal history of colonic polyps (Z86.010) Active confirmed History of polyp of colon (situation) (922432366) VITAL SIGNS BMI 44.08 kg/m2 2023 Blood pressure systolic 000 mm Hg 11/27/19 24 Blood pressure diastolic 00 mm Hg 024 Height 70 in 2023 Temperature 97.7 degrees Fahrenheit 11/27/19 24 Weight 307 lb 4 oz lbs 2023 Encounters Encounter Location Date Provider Diagnosis [facility] [address] [place] [address] 2023 Bam Marroquin Fatty liver K76.0 ; Elevated liver function tests R94.5 and Personal history of colonic polyps Z86.010 ASSESSMENTS Encounter Date Diagnosis Assessment Notes Treatment Notes Treatment Clinical Notes 2023 Fatty liver (ICD-10 - K76.0) 2023 Elevated liver function tests (ICD-10 - R94.5) 2023 Personal history of colonic polyps (ICD-10 - Z86.010) PLAN OF TREATMENT Pending Test Test Name Order Date LIVER PROFILE 2023 IRON + IBC (FE) 2023 CBC w DIFF 2023 FLUOR. ANTINUCLEAR AB SCREEN (DANISHA) 02/2024 Prothrombin Time INR 2023 Ferritin 2023 Alpha 1 Anti-trypsin 2023 Liver Fibrosis Pnl 2023 Mitochondrial Antibody 2023 Smooth Muscle Antibody 2023 Hepatitis B,C Profile 2023 US abdomen comp w elastography Next Appt Details Follow Up: 2023, Reaso n: Provider Name:Bam Marroquin , 09/30/2024 04:20:00 PM, [address], [address], [place], [address], Progress Notes * Examination Category Sub-Category Detail Notes General Examination GENERAL APPEARANCE: pleasant , well nourished, well developed, in no acute distress HEAD: EYES: sclera non-icteric EARS: NOSE: THROAT: NECK/THYROID: no cervical lymphade nopathy, neck supple HEART: S1, S2 normal CHEST: LUNGS: clear to auscultatio n bilaterally ABDOMEN: normal bowel sounds, no guarding or rigidity, no guarding or rigidity, no masses palpable, soft, nontender, nondistended NEUROLOGIC: alert and oriented SKIN: nonjaundiced, no spi juan angiomata EXTREMITIES: no edema PERIPHERAL PULSES: BACK: BREASTS: MUSCULOSKELETAL: MALE GENITOURINARY: LYMPH NODES: RECTAL EXAM: FEMALE GENITOURINARY: ORAL CAVITY: mucosa moist
--- OUTSIDE RECORDS SUMMARY | 2024-09-12 09:36 | XMS_ITS | Patient Health Record ---
Author Organization [facility] Address [address] [place] [address] Care Team Providers Care Air Conditioning Service Technician Name Role Phone Miguel Angel Guerra MD Primary Care Provider Unavailab Bam Benítez Unavailable [phone] ALLERGIES Allergen (clinical drug ingredient) Drug/Non Drug Allergy documented on EMR Reaction Allergy Type Onset Date Status acetaminophen / oxycodone Percocet Unknown Drug Allergy Active RESULTS Component Value Reference Range Notes US abdomen comp w elastograp hy Reviewed date:01/25/2024 09:14:57 PM Interpretation: Performing Lab: Notes/Report: [address] [address] Ultrasound Report Signed Patient: Martha Cuevas MR#: [id number] 3 : 1970 Acct:[id number] Age/Sex: 53 / M ADM Date: 12/13/23 Loc: HO.US Attending Dr: Bam Marroquin MD Ordering Physician: Bam Marroquin Date of Service: 12/13/23 Procedure(s): US abdomen comp w elastography Accession Number(s): [id number] cc: Miguel Angel Guerra MD; Bam Marroquin EXAMINATION: US COMPLETE ABDOMEN WITH LIVER ELASTOGRAPHY CLINICAL INFORMATION: Fatty liver. COMPARISON: None available. TECHNIQUE: Real-time imaging of the abdominal viscera. Noninvasive ultrasound liver fibrosis assessment is performed using To ElastPQ point quantification shear wave elastography (2D-SWE) with a C5-2 MHz transducer. Multiple elastography samples are obtained. FINDINGS: PANCREAS: The pancreas is obscured by bowel gas artifact and cannot be evaluated. ABDOMINAL AORTA: Only the proximal aorta could be seen and appeared unremarkable. The mid and distal aorta were obscured by bowel gas. INFERIOR VENA CAVA: Obscured by bowel gas. LIVER: The liver is enlarged measuring 19.8 cm in length and demonstrates increased echogenicity consistent with hepatic steatosis. No focal lesion or intrahepatic biliary duct dilatation. The right lobe measures 19.8 cm in length. The left lobe measures 13.2 cm in length. Portal flow is hepatopedal. Shear wave liver elastography median stiffness is 1.58 m/s (reference: normal median stiffness is 1.3 m/s or less). IQR/median stiffness to assess sampling precision is 0.08 (reference: good quality data set is IQR/median stiffness of 0.15 or less). GALLBLADDER: . The gallbladder is physiologically distended without evidence of stones, sludge, wall thickening or pericholecystic fluid. A 4 mm gallbladder polyp is present. COMMON BILE DUCT: Normal in caliber measuring 0.6 cm in diameter. RIGHT KIDNEY: Normal. No hydronephrosis. No renal calculi or focal parenchymal lesions. The kidney measures 13.1 cm in maximum dimension. LEFT KIDNEY: Normal. No hydronephrosis. No renal calculi or focal parenchymal lesions. The kidney measures 13.0 cm in maximum dimension. SPLEEN: Normal. The spleen is mildly enlarged measuring 12.5 cm in maximum dimension. FREE FLUID: None. US/US abdomen comp w elastography IMPRESSION: 1. Enlarged fatty liver and mild splenomegaly. 2. Liver Elastography: In the absence of other known clinical signs, measurements rule out compensated advanced chronic liver disease. If there are known clinical signs, further testing may be needed for confirmation. REFERENCE: Society of Radiologists in Ultrasound Liver Stiffness Thresholds (2020): LIVER STIFFNESS THRESHOLDS: *Liver Stiffness equal or less than 1.3 m/s: High probability of being normal. *Liver Stiffness less than 1.7 m/s: In the absence of other known clinical signs, rules out compensated advanced chronic liver disease. *Liver Stiffness 1.7-2.1 m/s: Suggestive of compensated advanced chronic liver disease but need further test for confirmation. *Liver Stiffness over 2.1 m/s: Rules in compensated advanced chronic liver disease. *Liver Stiffness over 2.4 m/s: Suggestive of clinically significant portal hypertension. QUALITY OF DATA SET: *IQR/Median value equal or less than 0.15 implies a quality data set. *IQR/Median value over 0.15 implies a poor quality data set. SIGNIFICANT CHANGE FROM PRIOR EXAM: Significant change if liver stiffness measurement is 10% or greater from prior exam. OTHER CONSIDERATIONS: The stage of liver fibrosis may be overestimated in the setting of acute hepatitis, liver inflammation, elevated liver function tests, hepatic vascular congestion, obstructive cholestasis, non-fasting state, and infiltrative diseases such as amyloidosis and lymphoma. In some patients with NAFLD, the liver stiffness thresholds for compensated advanced chronic liver disease may be lower. In causes other than viral hepatitis and NAFLD, liver stiffness thresholds are not well established. Dictated By: Julio César Carr MD Signed By: <Electronically signed by Julio César Carr MD in OV> 01/06/24 2230 DD/ 1040 TD/TT: Fire Equipment Inspector: JHON Complete Blood Count Auto Di ff Reviewed date:01/25/2024 09:08:56 PM Interpretation: Performing Lab:[facility], [address] [place] [phone] Notes/Report: White Blood Count 7.5 4.8-10.8 X10*3/uL Red Blood Count 5.16 4.60-5.80 X10*6/uL Hemoglobin 14.6 14.0-18.0 g/dl Hematocrit 43.0 42.0-52.0 % Mean Corpuscular Volume 83.3 80.0-98.0 fL Mean Corpuscular Hemoglobin 28.3 27.0-33.0 pg Mean Corpuscular HGB Conc 34.0 31.0-36.0 g/dl Red Cell Distribution Width 13.5 11.0-16.0 % Platelet Count 199 160-400 X10*3/uL Mean Platelet Volume 9.0 9.4-12.4 fL Neutrophils Percent Auto 63.4 45-73 % Imm Gran Pct Auto 0.4 0.0-0.4 % Lymphocytes Percent Auto 23.7 20-40 % Monocytes Percent Auto 8.3 2-11 % Eosinophils Percent Auto 3.1 0-4 % Basophils Percent Auto 1.1 0-2 % NRBC Pct Auto 0.0 0.0-0.2 /100WBC Neutrophils Absolute Auto 4.8 2.0-8.3 x10*3/u L Imm Gran Abs Auto 0.03 0.00-0.03 X10*3/uL Lymphocytes Absolute Auto 1.8 1.2-4.9 X10*3/u L Monocytes Absolute Auto 0.6 0.1-1.2 X10*3/uL Eosinophils Absolute Auto 0.2 0.0-0.4 X10*3/u L Basophils Absolute Auto 0.1 0.0-0.2 X10*3/uL NRBC Abs Auto 0.000 0.0-0.012 X10*3/uL Prothrombin Time INR Reviewed date:01/25/2024 09:15:15 PM Interpretation: Performing Lab:[facility], [address] [place] [phone] Notes/Report: Prothrombin Time 11.3 11.1-13.3 SEC INTERNATIONAL NORM RATIO 0.9 0.9-1.1 INTERNATIONAL NORMALIZED RATIO (INR) REFERENCE RANGES Reference Range For patients not on anticoagulant therapy: 0.9 - 1.1 INR ranges for oral anticoagulant therapy: For prevention and treatment of venous thrombosis and pulmonary embolism: 2.0 - 3.0 For acute myocardial infarction with aspirin therapy: 2.0 - 3.0 For acute myocardial infarction without aspirin therapy: 3.0 - 4.0 For patients with mechanical prosthetic heart valves: 2.5 - 3.5 Liver Panel Reviewed date:01/25/2024 09:15:24 PM Interpretation: Performing Lab:[facility], [address] [place] [phone] Notes/Report: Bilirubin Total 0.6 0.0-1.0 mg/dL Bilirubin Direct 0.2 0.0-0.5 mg/dL Aspartate Amino Transferase 50 5-37 U/L Alanine Aminotransferase 64 0-40 U/L Total Protein 7.3 6.5-8.0 g/dL Albumin Level 4.5 3.5-5.0 g/dL Alkaline Phosphatase 62 39-117 U/L IRON PROFILE Reviewed date:01/25/2024 09:15:30 PM Interpretation: Performing Lab:[facility], [address] [place] [phone] Notes/Report: Iron 79 45-160 mcg/dL Total Iron Binding Capacity 279 228-428 mcg/d L Percent Iron Saturation 28 15-50 % Unsaturated Iron Binding 200 Ferritin Reviewed date:01/25/2024 09:15:44 PM Interpretation: Performing Lab:[facility], [address] [place] [phone] Notes/Report: Ferritin 221 20-250 ng/mL Alpha 1 Anti-trypsin Reviewed date:02/06/2024 09:00:21 AM Interpretation: Performing Lab:[facility], [address] [place] [phone] Notes/Report: Alpha 1 Anti-trypsin 92 83-199 mg/dL THIS TEST WAS PERFORMED AT: [facility] [address] [place] [phone] TERESE CHU MD Liver Fibrosis Pnl Reviewed date:02/18/2024 09:29:28 AM Interpretation: Performing Lab:[facility], [address] [place] [phone] Notes/Report: Liver Fibrosis Score 0.14 Liver Fibrosis Stage F0 Liver Fibrosis Interpretation SEE NOTE no fibrosis Fibro Test Score (f) Metavir Score f>=0 and f<=0.21 : F0 (no fibrosis) f>0.21 and f<=0.27 : F0-F1 (no fibrosis) f>0.27 and f<=0.31 : F1 (minimal fibrosis) f>0.31 and f<=0.48 : F1-F2 (minimal fibrosis) f>0.48 and f<=0.58 : F2 (moderate fibrosis) f>0.58 and f<=0.72 : F3 (advanced fibrosis) f>0.72 and f<=0.74 : F3-F4 (advanced fibrosis) f>0.74 and f<=1.00 : F4 (severe fibrosis) Nec Inflam Act Score 0.27 Nec Inflam Act Grade A0-A1 Nec Inflam Act Interpretation SEE NOTE no activity ActiTest Score (a) Metavir Score a>=0 and a<=0.17 : A0 (no activity) a>0.17 and a<=0.29 : A0-A1 (no activity) a>0.29 and a<=0.36 : A1 (minimal activity) a>0.36 and a<=0.52 : A1-A2 (minimal activity) a>0.52 and a<=0.60 : A2 (significant activity) a>0.60 and a<=0.62 : A2-A3 (significant activity) a>0.62 and a<=1.00 : A3 (severe activity) FXR-Bogez-9-Macroglobulin 210 106-279 mg/dL FIB-Haptoglobin 193 43-212 mg/dL FIB-Apolipoprotein A1 198 94-176 mg/dL FIB-Total Bilirubin 0.5 0.2-1.2 mg/dL FIB-GGT 42 3-95 U/L FIB-ALT 54 9-46 U/L Reference ID [id number] Footnote SEE NOTE The reliability of results is dependent on compliance with the preanalytical and analytical conditions recommended by [employer]. The tests have to be deferred for: acute hemolysis, acute hepatitis, acute inflammation, extra hepatic cholestasis. The advice of a specialist should be sought for interpretation in chronic hemolysis and Gilbert's syndrome. The test interpretation is not validated in liver transplant patients. Isolated extreme values of one of the components should lead to caution in interpreting the results. In case of discordance between a biopsy result and a test, it is recommended to seek the advice of a specialist. The causes of these discordances could be due to a flaw of the test or to a flaw in the biopsy: i.e. a liver biopsy has a 33% variability rate for one fibrosis stage. FibroTest is interpretable for chronic hepatitis B and C, alcoholic and non alcoholic steatosis. ActiTest is interpretable for chronic hepatitis B and C. The performance characteristics have been determined by [facility]. It has not been cleared or approved by the U.S. Food and Drug Administration. Performance characteristics refer to the analytical performance of the test. [employer], the associated logo, [employer] and all associated [employer] velásquez are the registered trademarks of [employer]. All third constitution party velásquez - (R) and (TM) - are the property of their respective owners. (C) 3055-5863 [employer]. All rights reserved. THIS TEST WAS PERFORMED AT: [facility] [place] [address] [place] [address] BRYCE DAY MD,PHD,CHELLY NADEEM Reflex Titer and Pattern Reviewed date:02/04/2024 11:04:51 PM Interpretation: Performing Lab:[facility], [address] [place] [phone] Notes/Report: Anti Nuclear Antibody Screen NEGATIVE NEGATIVE NADEEM IFA is a first line screen for detecting the presence of up to approximately 150 autoantibodies in various autoimmune diseases. A negative NADEEM IFA result suggests an NADEEM-associated autoimmune disease is not present at this time, but is not definitive. If there is high clinical suspicion for Sjogren's syndrome, testing for anti-SS-A/Ro antibody should be considered. Anti-Diana-1 antibody should be considered for clinically suspected inflammatory myopathies. AC-0: Negative International Consensus on NADEEM Patterns (https://doi.org/10.1515/c rvs-5104-6538) For additional information, please refer to http://education.Via6/faq/OED560 (This link is being provided for informational/ educational purposes only.) THIS TEST WAS PERFORMED AT: [facility] [address] [place] [phone] TERESE CHU MD Anti Nuclear Antibody Titer TNP Anti Nuclear Antibody Pattern TNP NADEEM Titer 2 TNP NADEEM Pattern 2 TNP NADEEM Titer 3 TNP NADEEM Pattern 3 TNP Mitochondrial Antibody Reviewed date:01/31/2024 05:55:02 PM Interpretation: Performing Lab:[address] [address] Notes/Report: Mitochondrial Antibodies NEGATIVE NEGATIVE THIS TEST WAS PERFORMED AT: [facility] [address] [place] [phone] TERESE CHU MD Mitochondrial Ab Titer TNP Smooth Muscle Antibody Reviewed date:01/31/2024 05:55:10 PM Interpretation: Performing Lab:[facility], [address] [place] [phone] Notes/Report: Smooth Muscle Antibody <20 <20 U Reference Range: <20 U: Negative >or=20 U: Positive Antibodies recognizing actin are the main component of smooth muscle antibodies associated with auto- immune liver disease. Actin antibodies are found in approximately 75% of patients with autoimmune hepatitis (AIH) type 1, approximately 65% of patients with autoimmune cholangitis, approximately 30% of patients with primary biliary cirrhosis and approximately 2% of healthy controls. High values are closely correlated with AIH type 1. THIS TEST WAS PERFORMED AT: [facility] [address] [place] [address] LAURI JEFFERY MD,PHD Hepatitis B,C Profile Reviewed date:02/04/2024 11:04:40 PM Interpretation: Performing Lab:[facility], [address] [place] [phone] Notes/Report: Hepatitis B Surface Antibody NONREACTIVE Nonreactive Nonreactive: < 8.00 mIU/mL Hepatitis B Core Antibody Nonreactive Nonreactive Hepatitis C Antibody Nonreactive Nonreactive Antibodies to HCV not detected; does not exclude early acute HCV infection. Hepatitis B Surface Antigen Negative Negative REASON FOR REFERRAL No Information MEDICATIONS Medication SIG (Take, Route, Frequency, Duration) Notes Start Date End Date Status Metoprolol Succinate ER 50 MG Oral for 90 Active Simvastatin 40 MG Oral for 90 Active IMMUNIZATIONS Vaccine Route Administration Date Status Comme nts Influenza Unknown 04/03/2023 Refused SOCIAL HISTORY Tobacco Use: Social History Observation [...] W/U Status Risk SNOMED Code Notes Problem Colon cancer screening (Z12.11) Active confirmed 450371379 Problem Elevated LFTs (R79.89) Active confirmed 665477186 Problem Diverticulosis of large intestine without perforation or abscess without bleeding (K57.30) Active confirmed Diverticul ar disease of colon (946944077) Problem Fatty liver (K76.0) Active confirmed Fatty liver (006984706) Problem Elevated liver function tests (R94.5) Active confirmed Elevated liver enzymes level (291442768) Problem Personal history of colonic polyps (Z86.010) Active confirmed History of polyp of colon (situation) (021427239) VITAL SIGNS Temperature 97.7 degrees Fahrenheit 2023 Blood pressure diastolic 00 mm Hg 2023 Height 70 in 2023 Blood pressure systolic 000 mm Hg 2023 Weight 307 lb 4 oz lbs 2023 BMI 44.08 kg/m2 2023 Encounters Encounter Location Date Provider Diagnosis [facility] [address] [place] [address] 2023 Bam Marroquin Fatty liver K76.0 ; Elevated liver function tests R94.5 and Personal history of colonic polyps Z86.010 [facility] [address] [place] [address] 05/20/2024 Bam Marroquin [facility] [address] [place] [address] 05/19/2024 Bam Marroquin ASSESSMENTS Encounter Date Diagnosis Assessment Notes Treatment [...] Profile 2023 US abdomen comp w elastography Future Test Test Name Order Date COLONOSCOPY 04/03/2023 Next Appt Details Provider Name:Bam Damien Marroquin , 09/30/2024 04:20:00 PM, [address] [facility], [address], [place], [address], Insurance Providers Payer Name Payer Address Payer Phone Subscriber Number Group Number Insured Name Patient Relationship to Insured Coverage Start Date Coverage End Date [facility] [address] [place] [address] [id number] MARTHA CUEVAS Self - patient is the insured MEDICAL (GENERAL) HISTORY Medical History History ICD Code Denies OR,DM,CVA,Renal disease Sleep apnea-uses CPAP Metoprolol for increased heart rate Hyperlipidemia Use an inhaler for very occ. asthma History of slightly elevated LFTs attributed to fatty liver in relation to his obesity and elevated lipids Screening colonoscopy in June 3 with 3 tubular adenomas removed Surgical History Surgery Date(Month/Year) right patella fx 2000 left patella fx 2002
--- OUTSIDE RECORDS SUMMARY | 2024-09-12 09:36 | XMS_ITS ---
Author Organization [facility] Address [address] [place] [address] Care Team Providers Care Smoke Inspector Name Role Phone Miguel Angel Guerra MD Primary Care Provider Unavailab Bam Benítez Unavailable [phone] REASON FOR VISIT r/s tomorrows appt Encounters Encounter Location Date Provider Diagnosis [facility] [address] [place] [address] 05/19/2024 Bam Marroquin PLAN OF TREATMENT Next Appt Details Provider Name:Bam Marroquin , 09/30/2024 04:20:00 PM, [address], [address], [place], [address],
[2024-09-12 11:22] LABS: Estimated Average Glucose 128 mg/dL; Hemoglobin A1C 153.7749 umol/L; Hemoglobin A1c % 6.1 % (<6.0); Total Hemoglobin (HGBA1C) 3597.4136 umol/L
[2024-09-12 11:25] LABS: Creatinine Urine 162.08 mg/dL; Microalbum/Creatinine Ratio Ur 3.7 ug/mg cr (<30)
[2024-09-12 11:28] LABS: Alanine Aminotransferase 57 U/L (0-40); Anion Gap 11 (12-20); Aspartate Amino Transferase 33 U/L (5-37); Blood Urea Nitrogen 11 mg/dL (9-16); Carbon Dioxide 27 mmol/L (22-29); Chloride 107 mmol/L (96-108); Cholesterol 139 mg/dL (<200); Estimated Glomerular Filt Rate > 60; Glucose Fasting 107 mg/dL (60-99); HDL Cholesterol 58 mg/dL (>40); LDL Cholesterol Calculated 61 mg/dL (<100); Potassium 4.4 mmol/L (3.3-5.1); Sodium 141 mmol/L (135-145); Triglycerides 103 mg/dL (<150)
== END 2024-09-12 09:34 | disposition home or self-care (01) ==
LOC: HO.LAB 09:33
PROVIDERS: PCP Family Medicine; Visit Provider Family Medicine
DX: I10 Essential (primary) hypertension (principal); E11.9 Type 2 diabetes mellitus without complications; E78.00 Pure hypercholesterolemia, unspecified
CPT/HCPCS: 36415; 80051; 80061; 82043; 82565; 82570; 82947; 83036; 84450; 84460; 84520

== ENCOUNTER 2024-09-21 13:18 | Outpatient (AMB) | payer BC, SELFPAY ==
--- NOTE | 2024-09-21 13:22 | A.OFFVIS_ITS ---
Intake Visit Reasons: B/L Knee Injections - Last Inj Rt knee 04/2024 Intake Note: Norbert is a 53 year old male who presents today for a follow up of his right knee OA. Last injection was administered on 04/24/2024. Patient reports that he had good relief with the last injection in the right knee and would like to repeat today. He is also requesting a left knee injections however he had a Patella ORIF in 2000 and 2002. Allergies oxycodone [Percocet] Allergy (Unknown, Verified 07/26/23 10:13) syncope HPI HPI B/L Knee Injections - Last Inj Rt knee 04/2024: Details: Norbert is a 53 year old male who presents today for a follow up of his right knee OA. Last injection was administered on 04/24/2024. Patient reports that he had good relief with the last injection in the right knee and would like to repeat today. He is also requesting a left knee injections however he had a Patella ORIF in 2000 and 2002. 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 Retropatellar ttp bilaterally Prominent lateral patellar facet on the right. Psych Appearance: grossly normal Affect: normal affect Attitude: cooperative Office Procedures Joint Inj/Aspir; Non-Pain Clin Joint Injection/Drain Details: Injected 1 mL of Decadron and 3 mL 1% lidocaine and 3 mL of 0.25% Marcaine. Site was prepped using aseptic technique. Patient tolerated the procedure well. Shoulders, Hips, Knees, Knee Large Joint Injection : Bilateral Knee Coding Procedure code (CPT) selection complete Assessment & Plan Assessment & Plan (1) Patellofemoral arthritis: Code(s): M17.10 - Unilateral primary osteoarthritis, unspecified knee Category: Medical Plan: Post traumatic pf OA bilaterally. I injected both knees. May follow up as needed. Coding Level of Care Code Est Pt Level 3 (52469) Diagnoses Patellofemoral arthritis M17.10 CPT Codes Shoulders, Hips, Knees, - Knee Large Joint Injection 87987: Bilateral Knee ([id number])
--- OUTSIDE RECORDS SUMMARY | 2024-09-21 15:34 | XMS_ITS ---
Author Organization [facility] Address [address] [place] [address] Care Team Providers Care Gang Knife Fish Chopper Name Role Phone Miguel Angel Guerra MD Primary Care Provider Unavailab Bam Benítez Unavailable [phone] REASON FOR VISIT f/u office visit for elevated LFT Encounters Encounter Location Date Provider Diagnosis [facility] [address] [place] [address] 09/16/2024 Bam Marroquin PLAN OF TREATMENT Next Appt Details Provider Name:Bam Marroquin , 09/30/2024 04:20:00 PM, [address], [address], [place], [address],
--- OUTSIDE RECORDS SUMMARY | 2024-09-21 15:34 | XMS_ITS ---
Author Organization [facility] Address [address] [place] [address] Care Team Providers Care Cnc Operator Programmer Name Role Phone Miguel Angel Guerra MD Primary Care Provider Unavailab Bam Benítez Unavailable [phone] REASON FOR VISIT f/u for elevated lft Encounters Encounter Location Date Provider Diagnosis [facility] [address] [place] [address] 09/16/2024 Bam Marroquin PLAN OF TREATMENT Next Appt Details Provider Name:Bam Marroquin , 09/30/2024 04:20:00 PM, [address], [address], [place], [address],
--- OUTSIDE RECORDS SUMMARY | 2024-09-21 15:34 | XMS_ITS ---
Author Organization [facility] Address [address] [place] [address] Care Team Providers Care Marketing Specialist Name Role Phone Miguel Angel Guerra MD Primary Care Provider Unavailab Bam Benítez Unavailable [phone] REASON FOR VISIT Patient presents today for LFT F/U Encounters Encounter Location Date Provider Diagnosis [facility] [address] [place] [address] 05/20/2024 Bam Marroquin PLAN OF TREATMENT Next Appt Details Provider Name:Bam Marroquin , 09/30/2024 04:20:00 PM, [address], [address], [place], [address],
--- OUTSIDE RECORDS SUMMARY | 2024-09-21 15:35 | XMS_ITS | Patient Health Record ---
Author Organization [facility] Address [address] [place] [address] Care Team Providers Care Paste Mixer Name Role Phone Miguel Angel Guerra MD Primary Care Provider Unavailab Bam Benítez Unavailable [phone] ALLERGIES Allergen (clinical drug ingredient) Drug/Non Drug Allergy documented on EMR Reaction Allergy Type Onset Date Status acetaminophen / oxycodone Percocet Unknown Drug Allergy Active RESULTS Component Value Reference Range Notes US abdomen comp w elastograp hy Reviewed date:01/25/2024 09:14:57 PM Interpretation: Performing Lab: Notes/Report: [address] [address] Ultrasound Report Signed Patient: Martha Cuevas MR#: [id number] 3 : 1970 Acct:[id number] Age/Sex: 53 / M ADM Date: 12/13/23 Loc: HO.US Attending Dr: Bam Marroquin MD Ordering Physician: Bam Marroquin Date of Service: 12/13/23 Procedure(s): US abdomen comp w elastography Accession Number(s): [id number] cc: Miguel Angel Guerra MD; Bam Marroquin [...] in OV> 01/06/24 2230 DD/ 1040 TD/TT: [employer]: JHON Complete Blood Count Auto Di ff Reviewed date:01/25/2024 09:08:56 PM Interpretation: Performing Lab:[facility], [address] [place] [address] Notes/Report: White Blood Count 7.5 4.8-10.8 X10*3/uL [...] INR Reviewed date:01/25/2024 09:15:15 PM Interpretation: Performing Lab:[facility], [address] [place] [phone] Notes/Report: Prothrombin Time 11.3 11.1-13.3 SEC INTERNATIONAL [...] Panel Reviewed date:01/25/2024 09:15:24 PM Interpretation: Performing Lab:[facility], [address] [place] [phone] Notes/Report: Bilirubin Total 0.6 0.0-1.0 mg/dL Bilirubin Direct 0.2 0.0-0.5 mg/dL Aspartate Amino Transferase 50 5-37 U/L Alanine Aminotransferase 64 0-40 U/L Total Protein 7.3 6.5-8.0 g/dL Albumin Level 4.5 3.5-5.0 g/dL Alkaline Phosphatase 62 39-117 U/L IRON PROFILE Reviewed date:01/25/2024 09:15:30 PM Interpretation: Performing Lab:[facility], [address] [place] [phone] Notes/Report: Iron 79 45-160 mcg/dL Total Iron Binding Capacity 279 228-428 mcg/d L Percent Iron Saturation 28 15-50 % Unsaturated Iron Binding 200 Ferritin Reviewed date:01/25/2024 09:15:44 PM Interpretation: Performing Lab:[facility], [address] [place] [address] Notes/Report: Ferritin 221 20-250 ng/mL Alpha 1 Anti-trypsin Reviewed date:02/06/2024 09:00:21 AM Interpretation: Performing Lab:[facility], [address] [place] [phone] Notes/Report: Alpha 1 Anti-trypsin 92 83-199 mg/dL THIS TEST WAS PERFORMED AT: [employer] [address] [place] [address] TERESE CHU MD Liver Fibrosis Pnl Reviewed date:02/18/2024 09:29:28 AM Interpretation: Performing Lab:[facility], [address] [place] [phone] Notes/Report: Liver Fibrosis Score 0.14 Liver Fibrosis [...] a>0.62 and a<=1.00 : A3 (severe activity) ODC-Hdnge-8-Macroglobulin 210 106-279 mg/dL FIB-Haptoglobin 193 43-212 mg/dL FIB-Apolipoprotein A1 198 94-176 mg/dL FIB-Total Bilirubin 0.5 0.2-1.2 mg/dL FIB-GGT 42 3-95 U/L FIB-ALT 54 9-46 U/L Reference ID [id number] Footnote SEE NOTE The reliability of results is dependent on compliance with the preanalytical and analytical conditions recommended by [employer] The tests have to be deferred for: [...] The performance characteristics have been determined by [facility]. It has not been cleared or approved by the U.S. Food and Drug Administration. Performance characteristics refer to the analytical performance of the test. [facility], the associated logo, [place] and all associated [employer] velásquez are the registered trademarks of [employer]. All third green party velásquez - (R) and (TM) - are the property of their respective owners. (C) 0406-5391 [employer]. All rights reserved. THIS TEST WAS PERFORMED AT: [facility] [place] [address] [place] [address] BRYCE DAY MD,PHD,CHELLY NADEEM Reflex Titer and Pattern Reviewed date:02/04/2024 11:04:51 PM Interpretation: Performing Lab:[facility], [address] [place] [phone] Notes/Report: Anti Nuclear Antibody Screen NEGATIVE NEGATIVE [...] Negative International Consensus on NADEEM Patterns (https://doi.org/10.1515/c pbj-4745-1381) For additional information, please refer to http://education.Flowline/faq/YSU788 (This link is being provided for informational/ educational purposes only.) THIS TEST WAS PERFORMED AT: [employer] [address] [place] [phone] TERESE CHU MD Anti Nuclear Antibody Titer TNP Anti Nuclear Antibody Pattern TNP NADEEM Titer 2 TNP NADEEM Pattern 2 TNP NADEEM Titer 3 TNP NADEEM Pattern 3 TNP Mitochondrial Antibody Reviewed date:01/31/2024 05:55:02 PM Interpretation: Performing Lab:[address] [address] Notes/Report: Mitochondrial Antibodies NEGATIVE NEGATIVE THIS TEST WAS PERFORMED AT: [employer] [address] [place] [phone] TERESE CHU MD Mitochondrial Ab Titer TNP Smooth Muscle Antibody Reviewed date:01/31/2024 05:55:10 PM Interpretation: Performing Lab:[facility], [address] [place] [phone] Notes/Report: Smooth Muscle Antibody <20 <20 U [...] type 1. THIS TEST WAS PERFORMED AT: [employer] [address] [place] [address] LAURI JEFFERY MD,PHD Hepatitis B,C Profile Reviewed date:02/04/2024 11:04:40 PM Interpretation: Performing Lab:[facility], [address] [place] [phone] Notes/Report: Hepatitis B Surface Antibody NONREACTIVE Nonreactive [...] Problem Colon cancer screening (Z12.11) Active confirmed 271479099 Problem Personal history of colonic polyps (Z86.010) Active confirmed History of polyp of colon (situation) (667751012) Problem Diverticulosis of large intestine without perforation or abscess without bleeding (K57.30) Active confirmed Diverticul ar disease of colon (999712750) Problem Elevated LFTs (R79.89) Active confirmed 108159300 Problem Fatty liver (K76.0) Active confirmed Fatty liver (142861683) Problem Elevated liver function tests (R94.5) Active confirmed Elevated liver enzymes level (009039445) VITAL SIGNS Temperature 97.7 degrees Fahrenheit 2023 Blood pressure diastolic 00 mm Hg 2023 Height 70 in 2023 Blood pressure systolic 000 mm Hg 2023 Weight 307 lb 4 oz lbs 2023 BMI 44.08 kg/m2 2023 Encounters Encounter Location Date Provider Diagnosis [facility] [address] [place] [address] 05/20/2024 Bam Marroquin [facility] [address] [place] [address] 09/16/2024 Bam Marroquin [facility] [address] [place] [address] 09/16/2024 Bam Marroquin [facility] [address] [place] [address] 2023 Bam Marroquin Fatty liver K76.0 ; Elevated liver function tests R94.5 and Personal history of colonic polyps Z86.010 [facility] [address] [place] [address] 05/19/2024 Bam Marroquin ASSESSMENTS Encounter Date Diagnosis [...] COLONOSCOPY 04/03/2023 Next Appt Details Provider Name:Bam Marroquin , 09/30/2024 04:20:00 PM, [address], [address], [place], [address], Insurance Providers Payer Name Payer Address Payer Phone Subscriber Number Group Number Insured Name Patient Relationship to Insured Coverage Start Date Coverage End Date [facility] [address] [place] [address] [phone] [id number] FAITH MARTHA Self - patient is the insured MEDICAL (GENERAL) HISTORY Medical History History ICD Code Denies GA,DM,CVA,Renal disease Sleep apnea-uses CPAP Metoprolol for increased heart rate Hyperlipidemia Use an inhaler for very occ. asthma History of slightly elevated LFTs attributed to fatty liver in relation to his obesity and elevated lipids Screening colonoscopy in June 3 with 3 tubular adenomas removed Surgical History Surgery Date(Month/Year) right patella fx 2000 left patella fx 2002
== END 2024-09-21 13:47 | disposition home or self-care (01) ==
PROVIDERS: PCP Family Medicine; Visit Provider Orthopaedic Surgery
DX: M17.0 Bilateral primary osteoarthritis of knee (principal)
CPT/HCPCS: 20610; 99213

== ENCOUNTER → 2024-09-21 13:18 | Outpatient (BNVA) | payer BC, SELFPAY | PROVIDERS: PCP Family Medicine; Visit Provider Orthopaedic Surgery | DX: M17.2 Bilateral post-traumatic osteoarthritis of knee (principal); T14.90XS Injury, unspecified, sequela | CPT/HCPCS: 20610; J0665; J1100; J2003 ==

== ENCOUNTER 2025-04-05 16:23 | Outpatient (AMB) | payer BC, SELFPAY ==
--- OUTSIDE RECORDS SUMMARY | 2024-05-20 12:20 | XMS_ITS ---
Author Organization [facility] Address [address] [facility] [address] [place] [address] Care Team Providers Care Hairmasters Manager Name Role Phone Charlie (RETIRED) , Miguel Angel Primary Care Provider Unavailable Bam Marroquin [phone] REASON FOR VISIT Patient presents today for LFT F/U Encounters Encounter Location Date Provider Diagnosis [facility] [address] [facility] [address] [place] [address] 05/20/2024 Bam Marroquin Plan Of Treatment Next Appt Details Provider Name:Bam Marroquin , 09/29/2025 04:20:00 PM, [address] [facility], [address], [place], [address], Progress Notes * MARTHA CUEVAS EDOB:[birth year] (54 yo M)Acc No.[id number]:05/20/2024 Progress Notes Patient: MARTHA YOU Provider: Verona Marroquin MD :1970 A ge:53 Y S ex:Male Date:05/20/2024 Address:[address] [place], [place] [phone] Pcp:Miguel Angel Guerra (RETIRED) MD Subjective: * [...] Date: 1 Generated for Jaylin ribeiro/Carmela/Len on: 0 04/05/2025 09:27 PM EDT
--- OUTSIDE RECORDS SUMMARY | 2024-09-16 12:20 | XMS_ITS ---
Author Organization [facility] Address [address] [place] [address] Care Team Providers Care Therapy Director Name Role Phone Charlie (RETIRED) , Miguel Angel Primary Care Provider Unavailable Bam Marroquin [phone] REASON FOR VISIT f/u for elevated lft Encounters Encounter Location Date Provider Diagnosis [facility] [address] [place] [address] 09/16/2024 Bam Marroquin Plan Of Treatment Next Appt Details Provider Name:Bam Marroquin , 09/29/2025 04:20:00 PM, [address], [address], [place], [address], Progress Notes * MARTHA CUEVAS EDOB:[birth year] (54 yo M)Acc No.[id number]:09/16/2024 Progress Notes Patient: MARTHA YOU Provider: Verona Marroquin MD :1970 A ge:53 Y S ex:Male Date:09/16/2024 Address:[address] [place], [place] [id number] Pcp:Miguel Angel Guerra (RETIRED) MD Subjective: * [...] 0 09/16/2024 Generated for Jaylin ribeiro/Carmela/Teresaitting on: 0 04/05/2025 09:27 PM EDT
--- OUTSIDE RECORDS SUMMARY | 2024-09-16 12:20 | XMS_ITS ---
Author Organization [facility] Address [address] [place] [address] Care Team Providers Care Agricultural Chemist Name Role Phone Charlie (RETIRED) , Miguel Angel Primary Care Provider Unavailable Bam Marroquin [phone] REASON FOR VISIT f/u office visit for elevated LFT Encounters Encounter Location Date Provider Diagnosis [facility] [address] [place] [address] 09/16/2024 Bam Marroquin Plan Of Treatment Next Appt Details Provider Name:Bam Marroquin , 09/29/2025 04:20:00 PM, [address], [address], [place], [address], Progress Notes * MARTHA CUEVAS EDOB:[birth year] (54 yo M)Acc No.[id number]:09/16/2024 Progress Notes Patient: MARTHA YOU Provider: Verona Marroquin MD :1970 A ge:53 Y S ex:Male Date:09/16/2024 Address:[address] [place], [place] [id number] Pcp:Miguel Angel Guerra (RETIRED) MD Subjective: * [...] 0 09/16/2024 Generated for Jaylin ribeiro/Carmela/Len on: 0 04/05/2025 09:27 PM EDT
[2025-04-05 15:57] VITALS: BP 126/74; PULSE 85; TEMP 36.6; O2SAT 96; BMI 39.7
--- NOTE | 2025-04-05 15:57 | A.OFFPC_ITS ---
Vital Signs 04/05/25 15:57 Height 5 ft 10 in Weight 125.645 kg BMI 39.7 BP 126/74 Blood Pressure Location Rt brachial Position Sitting Pulse 85 Pulse Source Pulse Oximeter Temp 97.9 F Temp Source Temporal Artery Scan Pulse Oximetry (%) 96 Oxygen Delivery Method Room Air Intake Visit Reasons: 3 MO F/UP - HERMANN PT - see comments Supply Chain Project Manager Required: No Accompanied by: Self / Same As Patient Allergies oxycodone (Percocet) Allergy (Unknown, Verified 04/05/25 15:57) syncope Medication List - Last Reconciled 04/05/25 by ELISHA Rehman albuterol sulfate 90 mcg/actuation 2 puffs inhalation Q4H PRN celecoxib (Celebrex) 200 mg PO BID 30 days famotidine (Pepcid) 20 mg PO DAILY lisinopril 10 mg PO DAILY loratadine (Claritin) 10 mg PO DAILY metoprolol succinate ER 50 mg PO DAILY 30 days simvastatin 40 mg PO BEDTIME Tobacco use date assessed: 04/05/25 Dental Screening Dental Screen Date: 04/05/25 Did you have a dental visit in the last 12 months?: Yes Did you have a dental problem in the last 6 months where you did not have access to dental care?: No HPI HPI Comments History of Present Illness Details 54-year-old male with history of hyperte nsion, type 2 diabetes, TIM, hypercholesterolemia, GERD, osteoarthritis of the knees bilaterally, COPD, venous insufficiency, obesity presenting to the office today for management of chronic conditions and to establish care. Prior Dr. Guerra patient, last seen 12/21/24. Prediabetes-last hemoglobin A1c 6.1%. Diet-controlled Hypertension-blood pressure in the office 126/74. Compliant with metoprolol 50 mg ER, lisinopril 10 mg daily Hyperlipidemia-last LDL 61. Compliant with simvastatin 40 mg nightly Osteoarthritis knees bilaterally-Celebrex. Previously followed with ortho, but improved pain given increased activity and weight loss GERD-famotidine COPD-no recent exacerbation. Albuterol p.r.n.. Not on maintenance inhalers Obesity- has lost 20 pounds over last 3 months. Improved BP and HR. 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 Avoiding sugars and increased fruits and vegetable. Concerns: None Health maintenance: Last colonoscopy 06/2023 with 5 year follow-up advised. Dr. Marroquin ROS: General: No fevers, malaise, unintentional weight loss HEENT: No blurred vision, diplopia. No sore throat, nasal congestion, rhinorrhea, sinus pain, ear pain Cardiovascular: No chest pain, palpitations, or leg edema Respiratory: No shortness of breath, wheezing, cough GI: No abdominal pain, nausea, vomiting, diarrhea, constipation, melena, hematochezia : No dysuria, hematuria, increased urinary frequency, decreased urinary output MSK: No myalgia, back pain Neuro: No headaches, weakness, paresthesias Skin: No rashes or lesions EXAM: Constitutional - Awake and Alert, No apparent distress Eyes - PERRL Cardiovascular - S1S2, RRR, No edema Respiratory - Normal lung expansion, Normal respiratory effort, No respiratory distress, CTA bilaterally Extremities - no calf tenderness bilaterally, no swelling Skin - Warm/Dry Neurological - Alert & oriented x3 Psychological - Appropriate affect [facility] Medical History (Updated 04/05/25 @ 17:24 by ELISHA Rehman) Obesity (BMI 30-39.9) Prediabetes HTN (hypertension) Asthma Obstructive sleep apnea on CPAP Asthma High cholesterol Surgical History History of colonoscopy (~07/19/23) Hx of knee surgery Family History (Updated 04/05/25 @ 16:46 by Perla Patricia MA) Mother No problems noted. Father No problems noted. 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 1. Little interest or pleasure in doing things: not at all 2. Feeling down, depressed, or hopeless: not at all 3. Trouble falling or staying asleep, or sleeping too much: not at all 4. Feeling tired or having little energy: not at all 5. Poor appetite or overeating: not at all 6. Feeling bad about yourself - or that you are a failure or have let yourself or your family down: not at all 7. Trouble concentrating on things, such as reading the newspaper or watching television: not at all 8. Moving or speaking so slowly that other people could have noticed. Or the opposite - being so fidgety or restless that you have been moving around a lot more than usual: not at all 9. Thoughts that you would be better off or of hurting yourself in some way: not at all Total score: 0 Source: Developed by Drs. Bam Angeles, Merissa Hsieh, Clay Dooley and colleagues, with an educational rona from [employer]. Thrive Questionnaire Date Thrive assessed: 04/05/25 I am a: Patient Within the past 12 months, did the food you bought not last and you didn't have the money to get more?: Never true Within the past 12 months, did you worry whether your food would run out before you got money to buy more?: Never true Do you have trouble paying for medicines?: No Do you have trouble getting transportation to medical appointments?: No Do you have trouble paying your heating and electricity bill?: No Do you have trouble taking care of your child, family member or friend?: No Do you have trouble with day-to-day activities such as bathing, preparing meals, shopping, managing finances, etc.?: No Are you currently unemployed and looking for a job?: No Are you interested in more education?: No THRIVE Score: 0 AUDIT C Alcohol Use Questionnaire (AUDIT-C) 1. How often do you have a drink containing alcohol?: Never 3. How often do you have six or more drinks on one occasion?: Never Total Score: 0 CALEB-7 AMB Questionnaire CALEB-7 Date CALEB - 7 assessed: 04/05/25 Feeling nervous, anxious, or on edge: 0 = Not at all Not being able to stop or control worryin = Not at all Worrying too much about different things: 0 = Not at all Trouble relaxin = Not at all Being so restless that it is hard to sit still: 0 = Not at all Becoming easily annoyed or irritable: 0 = Not at all Feeling afraid as if something awful might happen: 0 = Not at all Total CALEB-7 score (0-4 normal; 5-9 mild; 10-14 moderate; 15-21 severe): 0 Source: Developed by Drs. Bam Angeles, Merissa Hsieh, Clay Dooley and colleagues, with an educational rona from [employer]. Physical exam (Primary Care) Vital Signs: Last Vital Signs Temp 97.9 F 04/05/25 15:57 Pulse 85 04/05/25 15:57 BP 126/74 04/05/25 15:57 Pulse Ox 96 04/05/25 15:57 Oxygen Delivery Method Room Air 04/05/25 15:57 BMI result Body Mass Index 39.7 Tobacco/Smoking Status: Tobacco use Status Tobacco use date assessed 04/05/25 04/05/25 15:58 Patient Tobacco Use Status Never used Tobacco 04/05/25 15:58 e-Cigarette/Vaping Use Never Used 04/05/25 15:58 PHQ-9: PHQ-9 Score PHQ-9: Total score 0 04/05/25 16:46 Thrive Assessment: Date of Thrive Assessment Date Thrive assessed 04/05/25 04/05/25 15:58 Coding Level of Care Code New Pt Level 4 (92168) Complex EM visit Add On G2211 Diagnoses HTN (hypertension) I10 High cholesterol E78.00 Prediabetes R73.03 Obstructive sleep apnea on CPAP G47.33 Asthma J45.909 Obesity (BMI 30-39.9) E66.9 Assessment & Plan Assessment & Plan (1) HTN (hypertension): Code(s): I10 - Essential (primary) hypertension Category: Medical Plan: Controlled. Continue lisinopril and metoprolol (2) High cholesterol: Code(s): E78.00 - Pure hypercholesterolemia, unspecified Category: Medical Plan: At goal. Lipid panel ordered. Continue simvastatin (3) Prediabetes: Code(s): R73.03 - Prediabetes Category: Medical Plan: A1c ordered. Counseled on diabetic diet. Continue weight loss efforts (4) Obstructive sleep apnea on CPAP: Code(s): G47.33 - Obstructive sleep apnea (adult) (pediatric) Category: Medical Plan: Continue with CPAP use (5) Asthma: Code(s): J45.909 - Unspecified asthma, uncomplicated Category: Medical Plan: No exacerbation. Albuterol p.r.n. (6) Obesity (BMI 30-39.9): Code(s): E66.9 - Obesity, unspecified Category: Medical Plan: Commended on recent weight loss. Encouraged to continue with efforts. Counseled on healthy diet as well as increased exercise. Plan Follow-up in the office in 6 months. Labs to be completed following visit today as well as prior to next visit. Orders: Orders Hemoglobin A1c Today E78.00 - Pure hypercholesterolemia, unspecified, G47.33 - Obstructive sleep apnea (adult) (pediatric), I10 - Essential (primary) hypertension, J45.909 - Unspecified asthma, uncomplicated, R73.03 - Prediabetes Lipid Panel Today E78.00 - Pure hypercholesterolemia, unspecified, G47.33 - Obstructive sleep apnea (adult) (pediatric), I10 - Essential (primary) hypertension, J45.909 - Unspecified asthma, uncomplicated, R73.03 - Prediabetes Liver Panel Today E78.00 - Pure hypercholesterolemia, unspecified, G47.33 - Obstructive sleep apnea (adult) (pediatric), I10 - Essential (primary) hypertension, J45.909 - Unspecified asthma, uncomplicated, R73.03 - Prediabetes Basic Metabolic Panel 6 Months E78.00 - Pure hypercholesterolemia, unspecified, I10 - Essential (primary) hypertension, R73.03 - Prediabetes Basic Metabolic Panel Today E78.00 - Pure hypercholesterolemia, unspecified, G47.33 - Obstructive sleep apnea (adult) (pediatric), I10 - Essential (primary) hypertension, J45.909 - Unspecified asthma, uncomplicated, R73.03 - Prediabetes Prostate Specific Antigen Today E78.00 - Pure hypercholesterolemia, unspe cified, G47.33 - Obstructive sleep apnea (adult) (pediatric), I10 - Essential (primary) hypertension, J45.909 - Unspecified asthma, uncomplicated, R73.03 - Prediabetes Lipid Panel 6 Months E78.00 - Pure hypercholesterolemia, unspecified, I10 - Essential (primary) hypertension, R73.03 - Prediabetes Hemoglobin A1c 6 Months E78.00 - Pure hypercholesterolemia, unspecified, I10 - Essential (primary) hypertension, R73.03 - Prediabetes
--- OUTSIDE RECORDS SUMMARY | 2025-04-05 21:28 | XMS_ITS | Patient Health Record ---
Author Organization [facility] Address [address] [place] [phone] Care Team Providers Care Watch Engine Operator Name Role Phone Charlie (RETIRED) Miguel Angel HUGHES Primary Care Provider Unavailable Bam Marroquin Unavailable [phone] Allergies Allergen (clinical drug ingredient) Drug/Non Drug Allergy documented on EMR Reaction Allergy Type Onset Date Status acetaminophen / oxycodone Percocet Unknown Drug Allergy Active Reason For Referral No Information Medications Medication SIG (Take, Route, Frequency, Duration) Notes Start Date End Date Status Montelukast Sodium 10 MG TAKE 1 TABLET B Y MOUTH EVERY DAY Oral for 5 Days Active Simvastatin 40 MG Oral for 90 Active Metoprolol Succinate ER 50 MG Oral for 90 Active CoQ-10 400 MG as directed Orally Active Mens Multivitamin - as directed Orally Active Allergy 4 MG 1 tablet as needed O rally every 6 hrs Active Magnesium 200 MG 2 tablets with a joel l Orally Once a day Active Lisinopril 10 MG TAKE 1 TABLET BY NADYA TH EVERY DAY Oral for 90 Days Active Immunizations Vaccine Route Administration Date Status Comme nts Influenza Unknown 04/03/2023 Refused Influenza Unknown 09/30/2024 Refused Social History Tobacco Use: Social History Observation Description Date Details (start date - stop date) Never Smoker NA - NA Tobacco Use/Smoking Question Answer Notes Patient is [...] Never (0 point) Points 1 Interpretation Negative Section Notes: Nonsmoker, no significant al cohol use Nonsmoker, no significant al cohol use Nonsmoker, no significant al cohol use Problems Problem Type SNOMED Code ICD Code Onset Dates Problem Status W/U Status Risk Notes Problem 930410307 Colon cancer screening (Z12.11) Active confirmed Problem History of polyp of colon (situation) (059186736) Personal history of colonic polyps (Z86.010) Active confirmed Problem Diverticular disease of colon (232824914) Diverticulosis of large intestine without perforation or abscess without bleeding (K57.30) Active confirmed Problem 361622210 Elevated LFTs (R79.89) Active confirmed Problem Fatty liver (897287020) Fatty liver (K76.0) Active confirmed Problem Elevated liver enzymes level (691397997) Elevated liver function tests (R94.5) Active confirmed Vital Signs Temperature 97.9 degrees Fahrenheit 09/30/2024 Blood pressure diastolic 01 mm Hg 09/30/2024 Height 70 in 09/30/2024 Blood pressure systolic 001 mm Hg 09/30/2024 Weight 294 lbs 09/30/2024 BMI 42.18 kg/m2 09/30/2024 Encounters Encounter Location Date Provider Diagnosis [facility] [address] [place] [phone] 09/30/2024 Bam Marroquin Fatty liver K76.0 ; Elevated liver function tests R94.5 and Personal history of colonic polyps Z86.010 [facility] [address] [place] [phone] 05/19/2024 Bam Marroquin Assessments Encounter Date Diagnosis (ICD Code) Assessment Notes Treatment Notes Treatment Clinical Notes Section Notes 09/30/2024 Fatty liver (ICD-10 - K76.0) 09/30/2024 Elevated liver function tests (ICD-10 - R94.5) Continue to watch diet and lose some weight in regard to the fatty liver and your overall health. We will check an ultrasound of the liver and labs when I see you in 1 year. 09/30/2024 Personal history of colonic polyps (ICD-10 - Z86.010) Repeat colonoscopy in 2027 Plan Of Treatment Pending Test Test Name Order Date LIVER [...] Name:Bam Marroquin , 09/29/2025 04:20:00 PM, [address] [facility], [address], [place], [address], Insurance Providers Payer Name Payer Address Payer Phone Subscriber Number Group Number Insured Name Patient Relationship to Insured Coverage Start Date Coverage End Date [facility] [address] [place] [address] [id number] MARTHA CUEVAS Self - patient is the insured Medical (General) History Medical History History ICD Code Denies [place],DM,CVA,Renal disease Sleep apnea-uses CPAP Metoprolol for increased heart rate Hyperlipidemia Use an inhaler for very occ. asthma History of slightly elevated LFTs attributed to fatty liver in relation to his obesity and elevated lipids Screening colonoscopy in June 3 with 3 tubular adenomas removed Surgical History Surgery Date(Month/Year) left patella fx 2002 right patella fx 2000
== END 2025-04-05 17:30 | disposition home or self-care (01) ==
LOC: HO.HMCHD 16:23
PROVIDERS: PCP Family Medicine; Visit Provider Physician Assistant
DX: I10 Essential (primary) hypertension (principal); E78.00 Pure hypercholesterolemia, unspecified; R73.03 Prediabetes; G47.33 Obstructive sleep apnea (adult) (pediatric); J45.909 Unspecified asthma, uncomplicated; E66.9 Obesity, unspecified

== ENCOUNTER 2025-04-24 09:09 | Outpatient (REF) | payer BC, SELFPAY ==
--- OUTSIDE RECORDS SUMMARY | 2024-05-20 12:20 | XMS_ITS ---
Author Organization [facility] Address [address] [facility] [address] [place] [phone] Care Team Providers Care Pension Fund Manager Name Role Phone Charlie (RETIRED) , Miguel Angel Primary Care Provider Unavailable Bam Marroquin [phone] REASON FOR VISIT Patient presents today for LFT F/U Encounters Encounter Location Date Provider Diagnosis [facility] [address] [facility] [address] [place] [phone] 05/20/2024 Bam Marroquin Plan Of Treatment Next Appt Details Provider Name:Bam Marroquin , 09/29/2025 04:20:00 PM, [address] [facility], [address], [place], [address], Progress Notes * MARTHA CUEVAS EDOB:[birth year] (54 yo M)Acc No.[id number]:05/20/2024 Progress Notes Patient: MARTHA YOU Provider: Verona Marroquin MD :1970 A ge:53 Y S ex:Male Date:05/20/2024 Address:[address] [place], [place] [id number] Pcp:Miguel Angel Guerra (RETIRED) MD Subjective: * Chief Complaints: * 1 . Patient presents today for LFT F/U. * Medical History: Objective: * Vitals: Assessment: Plan: * Treatment: * * The named appointment provid er may or may not be the originator of this progress note, and it is not deemed complete until electronically signed by the appointment provider. Sign off status: Pending * Provider: Verona Marroquin MD Date: 1 Generated for Jaylin ribeiro/Carmela/Len on: 1 09:12 AM EDT
--- OUTSIDE RECORDS SUMMARY | 2024-09-16 12:20 | XMS_ITS ---
Author Organization [facility] Address [address] [place] [address] Care Team Providers Care Rhinologist Name Role Phone Charlie (RETIRED) , Miguel Angel Primary Care Provider Unavailable Bam Marroquin [phone] REASON FOR VISIT f/u office visit for elevated LFT Encounters Encounter Location Date Provider Diagnosis [facility] [address] [place] [address] 09/16/2024 Bam Marroquin Plan Of Treatment Next Appt Details Provider Name:Bam Marroquin , 09/29/2025 04:20:00 PM, [address], [address], [place], [address], Progress Notes * MARTHA CUEVAS EDOB:[birth year] (54 yo M)Acc No.[id number]:09/16/2024 Progress Notes Patient: MARTHA YOU Provider: Verona Marroquin MD :1970 A ge:53 Y S ex:Male Date:09/16/2024 Address:[address] [place], [place] [id number] Pcp:Miguel Angel Guerra (RETIRED) MD Subjective: * Chief Complaints: * 1 . f/u office visit for elevated LFT. * Medical History: Objective: * Vitals: Assessment: Plan: * Treatment: * * The named appointment provid er may or may not be the originator of this progress note, and it is not deemed complete until electronically signed by the appointment provider. Sign off status: Pending * Provider: Verona Marroquin MD Date: 0 09/16/2024 Generated for Jaylin ribeiro/Carmela/Len on: 1 09:12 AM EDT
--- OUTSIDE RECORDS SUMMARY | 2024-09-16 12:20 | XMS_ITS ---
Author Organization [facility] Address [address] [place] [address] Care Team Providers Care Electrical Laboratory Technician Name Role Phone Charlie (RETIRED) , Miguel Angel Primary Care Provider Unavailable Bam Marroquin [phone] REASON FOR VISIT f/u for elevated lft Encounters Encounter Location Date Provider Diagnosis [facility] [address] [place] [address] 09/16/2024 Bam Marroquin Plan Of Treatment Next Appt Details Provider Name:Bam Marroquin , 09/29/2025 04:20:00 PM, [address], [address], [place], [address], Progress Notes * MARTHA CUEVAS EDOB:[birth year] (54 yo M)Acc No.[id number]:09/16/2024 Progress Notes Patient: MARTHA YOU Provider: Verona Marroquin MD :1970 A ge:53 Y S ex:Male Date:09/16/2024 Address:[address] [place], [place] [id number] Pcp:Miguel Angel Guerra (RETIRED) MD Subjective: * Chief Complaints: * 1 . F/u for elevated lft. * Medical History: Objective: * Vitals: Assessment: Plan: * Treatment: * * The named appointment provid er may or may not be the originator of this progress note, and it is not deemed complete until electronically signed by the appointment provider. Sign off status: Pending * Provider: Verona Marroquin MD Date: 0 09/16/2024 Generated for Jaylin ribeiro/Carmela/Teresaitting on: 1 09:12 AM EDT
--- OUTSIDE RECORDS SUMMARY | 2025-04-24 09:13 | XMS_ITS | Patient Health Record ---
Author Organization [facility] Address [address] [place] [phone] Care Team Providers Care Editing Internship Name Role Phone Charlie (RETIRED) Miguel Angel HUGHES Primary Care Provider Unavailable Bam Marroquin Unavailable [phone] Allergies Allergen (clinical drug ingredient) Drug/Non Drug [...] Problem Status W/U Status Risk Notes Problem 688484996 Colon cancer screening (Z12.11) Active confirmed Problem History of polyp of colon (situation) (055966585) Personal history of colonic polyps (Z86.010) Active confirmed Problem Diverticular disease of colon (945884302) Diverticulosis of large intestine without perforation or abscess without bleeding (K57.30) Active confirmed Problem 304861082 Elevated LFTs (R79.89) Active confirmed Problem Fatty liver (973700041) Fatty liver (K76.0) Active confirmed Problem Elevated liver enzymes level (307204405) Elevated liver function tests (R94.5) Active confirmed Vital Signs Temperature 97.9 degrees Fahrenheit 09/30/2024 Blood pressure diastolic 01 mm Hg 09/30/2024 Height 70 in 09/30/2024 Blood pressure systolic 001 mm Hg 09/30/2024 Weight 294 lbs 09/30/2024 BMI 42.18 kg/m2 09/30/2024 Encounters Encounter Location Date Provider Diagnosis [facility] [address] [place] [phone] 09/30/2024 Bam Marroquin Fatty liver K76.0 ; Elevated liver function tests R94.5 and Personal history of colonic polyps Z86.010 [facility] [address] [place] [phone] 05/19/2024 Bam Marroquin Assessments Encounter Date Diagnosis [...] Name:Bam Marroquin , 09/29/2025 04:20:00 PM, [address] [facility], [address], [place], [phone], Insurance Providers Payer Name Payer Address Payer Phone Subscriber Number Group Number Insured Name Patient Relationship to Insured Coverage Start Date Coverage End Date [facility] [address] [place] [address] [phone] [id number] MARTHA CUEVAS Self - patient is the insured Medical (General) History Medical History History ICD Code Denies PR,DM,CVA,Renal disease Sleep apnea-uses CPAP Metoprolol for increased heart rate Hyperlipidemia Use an inhaler for very occ. asthma History of slightly elevated LFTs attributed to fatty liver in relation to his obesity and elevated lipids Screening colonoscopy in June 3 with 3 tubular adenomas removed Surgical History Surgery Date(Month/Year) left patella fx 2002 right patella fx 2000
[2025-04-24 10:55] LABS: Alanine Aminotransferase 30 U/L (0-40); Albumin Level 4.8 g/dL (3.5-5.0); Alkaline Phosphatase 65 U/L (39-117); Anion Gap 11 (12-20); Aspartate Amino Transferase 26 U/L (5-37); Blood Urea Nitrogen 14 mg/dL (9-16); Calcium 9.4 mg/dL (8.4-10.2); Carbon Dioxide 28 mmol/L (22-29); Chloride 105 mmol/L (96-108); Cholesterol 134 mg/dL (<200); Estimated Glomerular Filt Rate > 60; HDL Cholesterol 49 mg/dL (>40); Potassium 4.9 mmol/L (3.3-5.1); Sodium 139 mmol/L (135-145); Total Protein 7.2 g/dL (6.5-8.0); Triglycerides 84 mg/dL (<150)
[2025-04-24 11:11] LABS: Prostate Specific Antigen 0.43 ng/mL (<0.05-4.0)
== END 2025-04-24 09:10 | disposition home or self-care (01) ==
LOC: HO.LAB 09:09
PROVIDERS: PCP Physician Assistant; Visit Provider Physician Assistant
DX: Z12.5 Encounter for screening for malignant neoplasm of prostate (principal); I10 Essential (primary) hypertension; E78.00 Pure hypercholesterolemia, unspecified; J45.909 Unspecified asthma, uncomplicated; G47.33 Obstructive sleep apnea (adult) (pediatric); R73.03 Prediabetes
CPT/HCPCS: 36415; 80048; 80061; 80076; 83036; 84153